=== PATIENT | male | born 1950 | race Caucasian/White ===

== ENCOUNTER 2019-04-10 13:35 | Inpatient (IN) | payer MEDICAID ==
[~2019-04-10] VITALS: Ht 175.3 cm; Wt 86.6 kg
--- NOTE | ~2019-04-10 | CN ---
PATIENT NAME:MIRNA ESPINOZA MEDICAL RECORD: [id number] : 48 LOCATION:D. D.2133 ADMIT DATE: 04/10/19 ACCOUNT: [id number] CONSULTING PHYSICIAN: ALDEN SALMON MD REFERRING PHYSICIAN: MINNIE ROJAS MD DATE OF CONSULTATION: 04/11/2019 REASON FOR CONSULTATION: Large right-sided pleural effusion, ascites. HISTORY OF PRESENT ILLNESS: Mr. Espinoza is a 68-year-old gentleman who is incarcerated, was admitted with worsening shortness of breath and chest radiograph showed large right-sided pleural effusion. His pro-BNP was 35,000. The patient has generalized anasarca. He denies any fever or chill. No night sweats. He has a cough without much sputum production. He denies any chest pain. REVIEW OF SYSTEMS: As in history of present illness. PAST MEDICAL HISTORY: 1. COPD. 2. Gastroesophageal reflux disease. 3. Diabetes mellitus type 2. 4. Arthritis. 5. Chronic backache. ALLERGIES: There are no known drug allergies. MEDICATIONS: On AppSlingr is reviewed. PERSONAL AND SOCIAL HISTORY: The patient is a nondrinker. He is an ex-smoker. FAMILY HISTORY: Noncontributory. PHYSICAL EXAMINATION: GENERAL: Now, the patient is lying comfortably in bed. He is not in acute distress. VITAL SIGNS: The blood pressure is 102/64, pulse is 96, respiration 20, temperature 96.8, SpO2 is 96% on 3.5 liter nasal cannula. HEENT: Conjunctivae are pink. Sclerae nonicteric. NECK: Supple. Very elevated JVD. CHEST: There is absent breath sounds on the right side. There is dullness on percussion. HEART: Rhythm regular, normal sound, no murmur. ABDOMEN: Distended, it is tense. Dullness on percussion. RECTAL: Deferred. EXTREMITIES: No cyanosis, no clubbing. There are 2+ pedal edema. CENTRAL NERVOUS SYSTEM: The patient is awake and alert. There is no obvious cranial nerve abnormality. The gait was not tested. LABORATORY DATA: CBC: The WBC is 12.7, hemoglobin 10.7, hematocrit 34.1, the platelet count 398. Chemistry: Sodium 141, potassium 4.1, BUN is 22, creatinine 0.9. The liver enzymes: AST is 11 and ALT is 14. The proBNP is 35,271. ABG: The pH is 7.37, pCO2 is 48.6, the pO2 is 67, and bicarb is 28.4. CONSULT REPORT [id number] MIRNA ESPINOZA IMPRESSION: 1. Iegio-mg-hjuekkd hypoxic hypercapnic respiratory failure. 2. Large right pleural effusion with a generalized anasarca, most likely secondary to congestive heart failure. This likely cirrhosis of liver with normal LFTs. 3. Atelectasis, possible pneumonia in the right lower lobe. 4. Leukocytosis. 5. Congestive heart failure, most likely systolic dysfunction with a proBNP 35,000. 6. Chronic obstructive pulmonary disease. 7. Chronic backache. 8. Ex-smoker. RECOMMENDATION: 1. Continue Lasix. 2. Continue empiric antibiotic. 3. Albuterol/ipratropium nebulizer. 4. I will proceed with thoracentesis on the right side. CT scan of the chest, post-thoracentesis. 5. Continue supplemental oxygen. Dr. Rojas, thank you for involving me in the care of Mr. Espinoza. TRANSINT:[id number] Voice Confirmation ID: [id number] DOCUMENT ID: [id number] ALDEN SALMON MD CC: [id number] DICTATION DATE: 04/11/19 1455 SUPERVISOR NATURAL GAS PLANT: 04/11/19 1757 ADM IN [facility] [address] [place] [address]
--- NOTE | 2019-04-10 14:01 | NUR ---
PATIENT IN PER EMS FROM THE NURSING HOME, HAS TWO GUARDS AT BEDSIDE, C/O SOB, STATES HE HAS A PARASENTHESIS SCHEDULED NEXT WEEK. HAS WHEEZES TO ALL LUNG DIAL, STATES HE IS A BEDBOUND PATIENT. ANSWERS QUESTION APPROPRIATELY AT THIS TIME, HAS A NONPRODUCTIVE COUGH, NO EDEMA.
[2019-04-10 14:38] LABS: BASOPHILS 0.1 % (0-2); EOSINOPHILS 0.6 % (0-7); HEMATOCRIT 34.1 % (42.0-54.0); HEMOGLOBIN 10.7 g/dL (13.5-17.5); IMMATURE GRANULOCYTES 0.3 % (0-5); LYMPHOCYTES 12.9 % (15-50); MCH 25.1 pg (26.0-34.0); MCHC 31.4 g/dL (31.0-37.0); MEAN PLATELET VOLUME 8.6 fL (7.4-10.4); MONOCYTES 7.7 % (2-11); NEUTROPHILS 78.4 % (40-80); PLATELET COUNT 398 10x3/uL (130-400); RBC 4.26 10x6/uL (4.20-6.10); RDW 18.8 % (11.5-14.5); WBC 12.7 10x3/uL (4.8-10.8)
[2019-04-10 14:48] LABS: CALC OSMOLALITY 284 mosm/kg (275-300); CALCIUM 9.1 mg/dL (8.5-10.1); CARBON DIOXIDE 31.4 mmol/L (21.0-32.0); CHLORIDE - SERUM 102 mmol/L (98-107); CREATININE - SERUM 0.9 mg/dL (0.6-1.3); GLUCOSE 118 mg/dL (74-106); POTASSIUM - SERUM 4.1 mmol/L (3.5-5.1); SODIUM 141 mmol/L (136-145); UREA NITROGEN 22 mg/dL (7-18); eGFR NON AFRICAN AMERICAN 89 mL/min (90-120)
[2019-04-10 14:59] VITALS: BP 125/82
[2019-04-10 15:01] LABS: APTT 29.2 SECONDS (22.8-39.4); INR 1.09 (0.85-1.17)
[2019-04-10 15:05] LABS: ALBUMIN 2.4 g/dL (3.4-5.0); ALKALINE PHOSPHATASE 86 U/L (46-116); ALT (SGPT) 14 U/L (10-68); BILIRUBIN - TOTAL 0.34 mg/dL (0.2-1.3); CKMB 2.3 U/L (0.0-3.6); CREATINE KINASE 25 UL (21-232); PROTEIN - SERUM 6.2 g/dL (6.4-8.2); TROPONIN-I 0.055 ng/mL (0.000-0.060)
[2019-04-10 15:24] LABS: PRO BNP 35271 pg/mL (0-125)
[2019-04-10 15:53] VITALS: BP 114/73
--- NOTE | 2019-04-10 16:52 | MORECARE ---
CASE MANAGEMENT DISCHARGE SUMMARY PATIENT: MIRNA ESPINOZA UNIT: [id number] ADM DATE: 04/10/19 AGE: 68 : 49 SEX: M ROOM/BED: D.2133 AUTHOR: BRI LAMAS PHYSICIAN: REFERRING PHYSICIAN: MINNIE SCHULTZ MD DATE OF SERVICE: 04/10/19 Discharge Plan Patient Name: MIRNA ESPINOZA [facility] : 1950 Planned Disposition: Anticipated Discharge Date: Discharge Date: Expected LOS: Initial Reviewer: [email or web address] Initial Review Date: 04/10/2019 Generated: 04/10/19 5:51 pm Patient Name: MIRNA ESPINOZA Page [phone] at 1652 All edits/amendments must be made on the electronic document DICTATION DATE: 04/10/191650 APPLIANCE INSTALLER: XENIA 04/10/191650 RPT#: [id number] DC DATE: STATUS: ADM IN [facility] [address] [place] [address] END OF REPORT
[2019-04-10 16:57] VITALS: BP 116/84
--- NOTE | 2019-04-10 17:47 | NUR ---
PT ARRIVED TO FLOOR VIA STRETCHER. TOOK X3 STAFF TO TRANSFER PT TO BED. PT IS ALERT AND ORINTED BUT A POOR HISTORIAN. O2 AT 2L VIA NC. RIGHT AC IV INFUSING NS AND ABX. IV WILL BE SL AFTER IV IS DONE INFUSING ABX. PT STATES HE HAS NO FURTHER NEEDS AT THIS TIME. PT PLACED ON TELEMETRY. GUARD AT BEDSIDE. BED LOW. CL IN REACH. WILL CONTINUE TO MONITOR.
[2019-04-10 18:11] LABS: % SATURATION 7 % (15-55); IRON 18 ug/dl (35-150); TOTAL IRON BIND CAPACITY 227 ug/dl (260-445); UNSAT IRON BIND CAPACITY 209 ug/dl (150-375)
[2019-04-10 18:13] VITALS: BP 109/72; BMI 35.5
[2019-04-10] MEDS ORDERED: ALDACTONE25 MG PO (18:23)
[2019-04-10] MEDS ORDERED: ZOSYN 3.3753.375 G1 IV (18:23)
[2019-04-10] MEDS ORDERED: PROVENTIL/2.5 MG/3 M INH (18:24)
[2019-04-10] MEDS ORDERED: LASIX40 MG PO (18:25)
[2019-04-10] MEDS ORDERED: ZYLOPRIM100 MG PO (18:26)
[2019-04-10] MEDS ORDERED: GLUCOPHAGE500 MG PO (18:26)
[2019-04-10] MEDS ORDERED: COREG6.25 MG PO (18:26)
[2019-04-10] MEDS ORDERED: ZOCOR20 MG PO (18:28)
[2019-04-10] MEDS ORDERED: K-TAB10 MEQ PO (18:31)
[2019-04-10] MEDS ORDERED: OMEPRAZOLE40 MG PO (18:31)
[2019-04-10] MEDS ORDERED: XOPENEX HFA15 GM INH (18:32)
[2019-04-10] MEDS ORDERED: FLOMAX0.4 MG PO (18:33)
[2019-04-10] MEDS ORDERED: LOW DOSE ASPIRI81 M1 PO (18:33)
[2019-04-10 18:38] LABS: MAGNESIUM - SERUM 1.4 mg/dL (1.8-2.4)
[2019-04-10 20:00] VITALS: BP 101/864
[2019-04-10 20:33] LABS: CKMB 2.3 U/L (0.0-3.6); CREATINE KINASE 25 UL (21-232); TROPONIN-I 0.052 ng/mL (0.000-0.060)
--- NOTE | 2019-04-10 23:48 | NUR ---
INITIAL ROUNDS COMPLETED AT 1920 HRS. PT DNEIED ANY DISCOMFORT. EKG COMPLETED AT 2014 HRS. ASSESSMENT COMPLETED AT 2039 HRS. VSS. BIPAP IN USE. ALERT AND ORIENTED. LUNGS DIMINISHED IN BASES BILAT. IV TO RAC SL. ABD DISTENDED WITH HYPOACTIVE BS NOTED. 2+ EDEMA NOTED TO FEET. BRUISES NOTED TO BILAT ARMS. BUTTOCKS RED, PT INCONTINENT OF URINE. HIBICLENS BATH DONE, BED LINENS CHANGED. PT TOLERATED ACTIVITY WELL. PM FSBS 133. NO COVERAGE NEEDED. PT CURRENTLY RESTING WTIH EYES CLOSED. RESP EVEN AND REGULAR. SR UP X2, CALL LIGHT WITHIN REACH. SRPER CM HR 88.
[2019-04-11] VITALS: BP 118/75
[2019-04-11 02:33] LABS: BASOPHILS 0.1 % (0-2); EOSINOPHILS 1.6 % (0-7); HEMATOCRIT 32.9 % (42.0-54.0); HEMOGLOBIN 10.2 g/dL (13.5-17.5); IMMATURE GRANULOCYTES 0.4 % (0-5); MCH 24.7 pg (26.0-34.0); MCV 79.7 fL (80.0-100.0); MEAN PLATELET VOLUME 8.5 fL (7.4-10.4); NEUTROPHILS 74.9 % (40-80); PLATELET COUNT 382 10x3/uL (130-400); RBC 4.13 10x6/uL (4.20-6.10); RDW 18.7 % (11.5-14.5); WBC 10.9 10x3/uL (4.8-10.8)
--- NOTE | 2019-04-11 02:34 | NUR ---
EKG DONE. UA OBTAINED.
[2019-04-11 02:51] LABS: APPEARANCE CLEAR (CLEAR); BILIRUBIN NEGATIVE (NEGATIVE); COLOR YELLOW (YELLOW); GLUCOSE NEGATIVE (NEGATIVE); KETONE NEGATIVE (NEGATIVE); NITRITE NEGATIVE (NEGATIVE); PROTEIN NEGATIVE (NEGATIVE); SPECIFIC GRAVITY 1.005 (1.005-1.020); UROBILINOGEN NORMAL (NORMAL)
[2019-04-11 02:58] LABS: ALBUMIN 2.2 g/dL (3.4-5.0); ALKALINE PHOSPHATASE 70 U/L (46-116); ALT (SGPT) 14 U/L (10-68); BILIRUBIN - TOTAL 0.33 mg/dL (0.2-1.3); CALC OSMOLALITY 282 mosm/kg (275-300); CALCIUM 8.7 mg/dL (8.5-10.1); CARBON DIOXIDE 32.8 mmol/L (21.0-32.0); CHLORIDE - SERUM 102 mmol/L (98-107); CKMB 1.7 U/L (0.0-3.6); CREATINE KINASE 24 UL (21-232); CREATININE - SERUM 0.9 mg/dL (0.6-1.3); GLUCOSE 109 mg/dL (74-106); POTASSIUM - SERUM 3.5 mmol/L (3.5-5.1); PROTEIN - SERUM 6.1 g/dL (6.4-8.2); SODIUM 140 mmol/L (136-145); TROPONIN-I 0.053 ng/mL (0.000-0.060); UREA NITROGEN 22 mg/dL (7-18); eGFR NON AFRICAN AMERICAN 89 mL/min (90-120)
[2019-04-11 04:00] VITALS: BP 108/71
--- NOTE | 2019-04-11 04:59 | NUR ---
TYLENOL 650 MG PO GIVE FOR C/O GENERALIZED DISCOMFORT. KDUR 40 MEQ PO GIVEN FOR K+ OF 3.5 PER ELECTROLYTE PROTOCOL. WILL CONTINUE TO MONITOR.
--- NOTE | 2019-04-11 05:53 | NUR ---
VSS THROUGHOUT NIGHT. SR PER CM. PT STATED TYLENOL HELPED ALLEVIATE PAIN. NEEDS MET; WILL CONTINUE TO MONITOR.
--- NOTE | 2019-04-11 07:18 | NUR ---
PT AWAKE AND ORIENTED, LAYING IN BED. GUARD AT BEDSIDE. NO COMPLAINTS/CONCERNS, ALL QUESTIONS ANSWERED TO THE BEST OF MY ABILITY. CL IN REACH, SRX2.
[2019-04-11 08:33] VITALS: Ht 175.3 cm; Wt 86.6 kg
[2019-04-11 09:14] LABS: CKMB 1.6 U/L (0.0-3.6); CREATINE KINASE 21 UL (21-232); TROPONIN-I 0.059 ng/mL (0.000-0.060)
--- NOTE | 2019-04-11 09:19 | NUR ---
PT AWAKE ALERT AND ORIENTED, TOOK PILLS WITHOUT DIFFICULTY OR ASSITANCE. NO COMPLAINTS OR CONCERNS, ORDERED GUEST TRAY FOR GUARD. ALL QUESTIONS ANSWERED TO THE BEST OF MY ABILITY. CL IN REACH, SRX.2
--- NOTE | 2019-04-11 10:00 | NUR ---
PT REFUSES PHYSCIAL THERAPY.
[2019-04-11 10:12] VITALS: BP 102/64
--- NOTE | 2019-04-11 11:30 | NUR ---
PT AWAKE AND ORIENTED, STATES HE'S HAVING SOME CONSTANT LEAKING OF URINE AND WOULD LIKE TO HAVE A CATHETER. INFROMED PT OF THE RISKS OF HAVING A BUSCH CATH PLACED (UTI, ECT). HE STATES HE WILL SPEAK TO THE DR ABOUT IT WHEN HE ROUNDS. GUARD AT BEDSIDE. CL INR REACH, SRX2.
[2019-04-11 12:00] VITALS: BP 115/81
--- NOTE | 2019-04-11 15:06 | NUR ---
PT RESTING PEACEFULLY. EYES CLOSED, BREATHS EVEN/REGULAR AND UNLABORED. NO SIGNS/SYMTPOMS OF ACUTE DISTRESS NOTED AT THIS TIME. DID NOT ORDER A CATHETER. GUARD AT BEDSIDE. CL IN REACH, SRX2.
--- NOTE | 2019-04-11 18:02 | NUR ---
I CONCUR WITH THE REPAIR MECHANIC ASSESSMENT OF THIS PATIENT.
[2019-04-11 18:09] VITALS: BP 105/67
--- NOTE | 2019-04-11 18:22 | NUR ---
PT IS ALERT AND ORIENTED, C/O NEEDING BREATH TX. INFROMED RESPIRATORY. GUARD AT BEDSIDE. ALL QUESTIONS ANSWERED TO THE BEST OF MY ABILITY. I/V WORKING WNL. CL IN REACH, SRX2.
--- NOTE | 2019-04-11 19:58 | NUR ---
RECEIVED UP IN BED WITH HOB ELEVATED. O2@ 3.5 LITERS PER N/C. IV TO RIGHT AC COMPLETED IRON AND FLUSHED PER PROTOCOL. ALERT AND ORIETNED. REMAINS BEDFAST. GAURD AT BEDSIDE. TELEMETRY IN PLACE. BIPAP AT BEDSIDE. DENIES ANY NEEDS AT THIS TIME.
[2019-04-11 20:00] VITALS: BP 133/69
--- NOTE | 2019-04-11 20:01 | NUR ---
TWO LARGE NODULE ON BACK. ONEIS ON THE LEFT SIDE ON AND NEAR SCAPULA. IT IS MOVABLE AND FEELS POSSIBLY FLUID FILLED. OTHER NODULE IS UPPER MID BACK CLOSE TO NECK. SMALLER IN SIZE AND MOVEABLE. MUCH FIRMER. WILL REPORT TO ONCOMMING TO INFORM MD.
[2019-04-12] VITALS (14 sets, daily range): BP systolic 102–118; BP diastolic 62–77
[2019-04-12 05:49] LABS: BASOPHILS 0.2 % (0-2); EOSINOPHILS 1.9 % (0-7); HEMATOCRIT 35.7 % (42.0-54.0); HEMOGLOBIN 11.1 g/dL (13.5-17.5); IMMATURE GRANULOCYTES 0.2 % (0-5); LYMPHOCYTES 16.6 % (15-50); MCH 24.8 pg (26.0-34.0); MCHC 31.1 g/dL (31.0-37.0); MCV 79.9 fL (80.0-100.0); MEAN PLATELET VOLUME 8.8 fL (7.4-10.4); MONOCYTES 9.1 % (2-11); PLATELET COUNT 352 10x3/uL (130-400); RBC 4.47 10x6/uL (4.20-6.10); RDW 18.6 % (11.5-14.5); WBC 9.4 10x3/uL (4.8-10.8)
[2019-04-12 06:18] LABS: ALBUMIN 2.3 g/dL (3.4-5.0); ALKALINE PHOSPHATASE 79 U/L (46-116); ALT (SGPT) 15 U/L (10-68); BILIRUBIN - TOTAL 0.32 mg/dL (0.2-1.3); CALC OSMOLALITY 287 mosm/kg (275-300); CALCIUM 8.7 mg/dL (8.5-10.1); CARBON DIOXIDE 34.8 mmol/L (21.0-32.0); CHLORIDE - SERUM 102 mmol/L (98-107); GLUCOSE 121 mg/dL (74-106); POTASSIUM - SERUM 3.6 mmol/L (3.5-5.1); PROTEIN - SERUM 6.5 g/dL (6.4-8.2); SODIUM 142 mmol/L (136-145); UREA NITROGEN 23 mg/dL (7-18); eGFR NON AFRICAN AMERICAN 79 mL/min (90-120)
[2019-04-12 06:20] LABS: PRO BNP 43655 pg/mL (0-125)
--- NOTE | 2019-04-12 07:00 | NUR ---
RECEIVED REPORT. ASSUMED CARE OF PATIENT. PATIENT RESTING IN BED WITH EYES CLOSED. RESP EVEN AND UNLABORED. PATIENT WITH GAURD AT BEDSIDE. PATIENT NPO FOR PROCEDURE THIS AM. CALL LIGHT WITHIN REACH. NO DISTRESS.
--- NOTE | 2019-04-12 08:36 | NUR ---
PATIENT LEFT UNIT VIA BED AT THIS TIME FOR THORACENTESIS VIA . NO DISTRESS UPON LEAVING UNIT.
--- NOTE | 2019-04-12 09:30 | NUR ---
PATIENT RETURNED TO UNIT VIA BED FROM THORACENTESIS OF RIGHT LUNG. PATIENT ALERT/ORIENTED. NO DISTRESS. DRESSING TO RIGHT BACK, CLEAN DRY AND INTACT. DENIES NEEDS AT THIS TIME. AM MEAL TRAY ORDERED. VS Q 15 MINUTES. NO DISTRESS. GAURD AT BEDSIDE.
[2019-04-12 10:07] LABS: PROTEIN - BODY FLUID 3.1 G/DL
[2019-04-12 10:46] LABS: MACROPHAGES BF 60 %; MESOTHELIALS BF 1 %; NEUT - BF 16 %
--- NOTE | 2019-04-12 11:37 | NUR ---
FSBS 137. NO INSULIN COVERAGE PER SLIDING SCALE.
--- NOTE | 2019-04-12 15:44 | NUR ---
MEDICATED FOR BACK PAIN WITH TYLENOL. NO DISTRESS.
--- NOTE | 2019-04-12 17:01 | NUR ---
FSBS 163. 2 UNITS HUMULIN INSULIN ADMINISTERED PER SLIDING SCALE
--- NOTE | 2019-04-12 20:54 | NUR ---
INITIAL ROUNDS COMPLETED AT 1910 HRS. PT INCONTINENT OF URINE. INCONTINENT CARE DONE. ASSESSMENT COMPELTED AT 1935 HRS. SR PER CM HR 83. O2 3.5LNC. ALERT AND ORIENTED TO PERSON, PLACE AND TIME. HWEELER. LUNGS DIMINISHED IN BASES BILAT. IV TO RAC WITH IVAB INFUSING. ABD DISTENDED WITH ACTIVE BS NOTED. 2+ PITTING EDEMA NOTED. DRESSING TO R LATERAL BACK CLEAN,DRY AND INTACT. BUTTOCKS RED. BRUISE NOTED TO ABD. NUMEROUS RED ALREAS NOTED TO BILAT LOWER LEGS. PM FSBS 135. NO COVERAGE NEEDED. SR UP X2, CALL LIGHT WITHIN REACH.
--- NOTE | 2019-04-12 21:52 | NUR ---
TYLENOL 650MG PO GIVEN FOR C/O INCISIONAL PAIN WITH PM MEDS. IV SL. CALL LIGHT WITHIN REACH.
[2019-04-13] VITALS: BP 90/54
--- NOTE | 2019-04-13 00:39 | NUR ---
PT RESTING WITH EYES CLOSED. RESP EVEN AND REGULAR. SR UP X2, CALL LIGHT WITHIN REACH.
--- NOTE | 2019-04-13 02:23 | NUR ---
PT INCONTINENT OF URINE. INCONTINENT CARE DONE. SR UP X2, CALL LIGHT WITHIN REACH.
[2019-04-13 04:28] VITALS: BP 81/54
--- NOTE | 2019-04-13 05:01 | NUR ---
PT RESTING WITH EYES CLOSED. RESP EVEN AND REGULAR. SR UP X2, CALL LIGHT WITHIN REACH.
[2019-04-13 05:27] LABS: BASOPHILS 0.1 % (0-2); EOSINOPHILS 2.2 % (0-7); HEMOGLOBIN 10.5 g/dL (13.5-17.5); IMMATURE GRANULOCYTES 0.3 % (0-5); LYMPHOCYTES 16.3 % (15-50); MCH 24.6 pg (26.0-34.0); MCHC 30.9 g/dL (31.0-37.0); MCV 79.8 fL (80.0-100.0); MEAN PLATELET VOLUME 9.2 fL (7.4-10.4); MONOCYTES 11.2 % (2-11); NEUTROPHILS 69.9 % (40-80); PLATELET COUNT 352 10x3/uL (130-400); RBC 4.26 10x6/uL (4.20-6.10); RDW 18.7 % (11.5-14.5); WBC 9.6 10x3/uL (4.8-10.8)
--- NOTE | 2019-04-13 06:01 | NUR ---
VSS THROUGHOUT NIGHT. SR PER CM. PT STATED TYLENOL HELPED INCISIONAL PAIN. NEEDS MET; WILL CONTINUE TO MONITOR.
[2019-04-13 06:02] LABS: ALKALINE PHOSPHATASE 75 U/L (46-116); ALT (SGPT) 14 U/L (10-68); BILIRUBIN - TOTAL 0.28 mg/dL (0.2-1.3); CALC OSMOLALITY 283 mosm/kg (275-300); CALCIUM 8.3 mg/dL (8.5-10.1); CARBON DIOXIDE 38.4 mmol/L (21.0-32.0); CHLORIDE - SERUM 99 mmol/L (98-107); CREATININE - SERUM 0.9 mg/dL (0.6-1.3); GLUCOSE 127 mg/dL (74-106); POTASSIUM - SERUM 3.5 mmol/L (3.5-5.1); PROTEIN - SERUM 5.5 g/dL (6.4-8.2); SODIUM 140 mmol/L (136-145); UREA NITROGEN 21 mg/dL (7-18); eGFR NON AFRICAN AMERICAN 89 mL/min (90-120)
[2019-04-13 06:51] LABS: PRO BNP 36744 pg/mL (0-125)
[2019-04-13 10:09] VITALS: BP 113/68
--- NOTE | 2019-04-13 11:11 | NUR ---
I have reviewed this patient and I concur with the Shift Assessment completed by the Licensed Practical Nurse today this shift.
[2019-04-13 13:01] VITALS: BP 113/70
--- NOTE | 2019-04-13 13:55 | NUR ---
PT HAD LARGE BM IN BEDPAN. PT'S BED DIRTY. BED LINENS CHANGED.
--- NOTE | 2019-04-13 13:56 | NUR ---
UNABLE TO COLLECT STOOL SAMPLE D/T CONTAMINATED PER URINE.
--- NOTE | 2019-04-13 16:00 | NUR ---
SPOKE WITH QUIN RODRIGUEZ ABOUT DOBUTAMINE DRIP THAT WAS ORDERED BY DR. SHARP. SHE STATES THE ECHO WILL HAVE TO GET READ FIRST AND IF EF IS LESS THAN 30 START DOBUTAMINE DRIP IT IS PUT IN DR. SHARP'S NOTE. BUT THE ECHO PROBABLY WON'T BE READ UNTIL TOMORROW. SHE ALSO STATES SHE WILL PUT IN A NURSE MESSAGE THAT IF PT'S HR GETS TO BE OVER 100 TO GIVE COREG AND TO PASS THIS ON TO FUNCTIONAL SKILLS TUTOR. I VERBALIZED UNDERSTANDING.
--- NOTE | 2019-04-13 16:36 | NUR ---
RIGHT AC 20G IV OUT. INSERTED A 20G IN LEFT FA ON SECOND ATTEMPT.
[2019-04-13 16:55] VITALS: BP 97/60
--- NOTE | 2019-04-13 19:00 | NUR ---
EVENING ROUNDS COMPLETE. PT LAYING IN BED, GAURD AT BEDSIDE. NO SIGNS OF DISTRESS. AAOX4. PT DENIES ANY PAIN OR NEEDS AT THIS TIME. CL IN REACH, BED IN LOWEST POSITION.
[2019-04-13 20:30] VITALS: BP 120/69
[2019-04-14 00:30] VITALS: BP 102/68
[2019-04-14 04:30] VITALS: BP 105/58
[2019-04-14 06:25] LABS: BASOPHILS 0.1 % (0-2); EOSINOPHILS 3.2 % (0-7); HEMATOCRIT 34.1 % (42.0-54.0); HEMOGLOBIN 10.5 g/dL (13.5-17.5); IMMATURE GRANULOCYTES 0.3 % (0-5); LYMPHOCYTES 20.9 % (15-50); MCH 24.6 pg (26.0-34.0); MCHC 30.8 g/dL (31.0-37.0); MEAN PLATELET VOLUME 9.1 fL (7.4-10.4); MONOCYTES 8.9 % (2-11); NEUTROPHILS 66.6 % (40-80); PLATELET COUNT 344 10x3/uL (130-400); RBC 4.26 10x6/uL (4.20-6.10); RDW 18.8 % (11.5-14.5); WBC 9.2 10x3/uL (4.8-10.8)
[2019-04-14 07:04] LABS: ALKALINE PHOSPHATASE 68 U/L (46-116); ALT (SGPT) 15 U/L (10-68); BILIRUBIN - TOTAL 0.35 mg/dL (0.2-1.3); CALC OSMOLALITY 281 mosm/kg (275-300); CALCIUM 8.1 mg/dL (8.5-10.1); CARBON DIOXIDE 39.4 mmol/L (21.0-32.0); CHLORIDE - SERUM 98 mmol/L (98-107); CREATININE - SERUM 0.9 mg/dL (0.6-1.3); GLUCOSE 108 mg/dL (74-106); PROTEIN - SERUM 5.9 g/dL (6.4-8.2); SODIUM 139 mmol/L (136-145); UREA NITROGEN 22 mg/dL (7-18); eGFR NON AFRICAN AMERICAN 89 mL/min (90-120)
[2019-04-14 07:07] LABS: POTASSIUM - SERUM 3.6 mmol/L (3.5-5.1)
[2019-04-14 09:58] VITALS: BP 127/78
--- NOTE | 2019-04-14 10:31 | NUR ---
SPOKE WITH LUPE RODRIGUEZ THAT PT IS INCONTINENT AFTER GETTING LASIX AND WE CAN NOT ACCURATELY MEASURE PT'S I AND O. SHE STATES TO PLACE A BUSCH CATH. I VERBALIZED UNDERSTANDING.
--- NOTE | 2019-04-14 11:04 | NUR ---
16 DIVEHI BUSCH CATHETER PLACED WITH NO RESISTANCE. PT TOLERATED WELL.
--- NOTE | 2019-04-14 13:00 | NUR ---
PT ASSISTED ON BSC AND BACK IN BED BY UTILITY PORTER. PT HAD A LARGE BM.
[2019-04-14 14:40] VITALS: BP 109/76
--- NOTE | 2019-04-14 15:20 | NUR ---
DR. BLOOMSKED WHY DOBUTAMINE DRIP HAS NO BEEN STARTED. I STATED TO HIM I AM WAITING FOR ECHO RESULTS TO SEE IF PT'S EF IS LESS THAN 30% TO START IT PER HIS NOTE YESTERDAY. HE YELLS AT ME AND STATES "MY NOTE DOES NOT SAY THAT!! START THE DRIP RIGHT NOW!" I VERBALIZED UNDERSTANDING. IN DR. HODGSON NOT YESTERDAY 04/13/19 IT SAYS "IF EF < 30%, WILL START DOBUTAMINE FOR ENHANCED DIURESIS." STARTED DOBUTAMINE AT 24.5ML/HR IN LEFT FA 20G IV.
--- NOTE | 2019-04-14 15:35 | NUR ---
Nutrition Follow-up: Eating well. Denies N/V/C/D. Diet: Diabetic PO intake: 100% Wt: 180# (04/14) Last BM: 04/13 Labs noted: Glu 108, Ca 8.1, Alb 2.0 Meds noted: Lasix, Humulin, Protonix -Continue current diet as tolerated. -Monitor wt; noted daily wts ordered. -RD following.
--- NOTE | 2019-04-14 15:35 | NUR ---
SPOKE WITH QUIN PENN ABOUT DOBUTAMINE DRIP AND THE ECHO JUST RESULTED. SHE STATES SHE WILL TALK TO [facility] ON WHETHER HE WANTS TO DC THE DOBUTAMINE OR NOT AND TO IRA SALVADOR ON INSERTING ANOTHER IV ON PATIENT. I VERBALIZED UNDERSTANDING.
--- NOTE | 2019-04-14 17:07 | NUR ---
DC'D DOBUTAMINE PER CARDIOLOGY ORDERS.
--- NOTE | 2019-04-14 17:10 | NUR ---
OT NOTE: PT COMPLETED EOB SITTING BALANCE WITH SBA. PT COMPLETED BED MOB TASKS WITH SBA. PT COMPLETED BUE AROM EX AT EOB. 103-134 THANK YOU, REG IBARRA
[2019-04-14 17:32] VITALS: BP 116/67
--- NOTE | 2019-04-14 17:48 | NUR ---
I have reviewed this patient and I concur with the Shift Assessment completed by the Licensed Practical Nurse today this shift.
[2019-04-14 18:08] LABS: ACID FAST SMEAR Negative (()); AFB SPECIMEN PROCESSING Not Indicated (())
[2019-04-14 20:45] VITALS: BP 94/65
[2019-04-15 01:05] VITALS: BP 97/61
[2019-04-15 04:45] VITALS: BP 90/64
[2019-04-15 06:18] LABS: BASOPHILS 0.1 % (0-2); HEMATOCRIT 33.6 % (42.0-54.0); HEMOGLOBIN 10.4 g/dL (13.5-17.5); IMMATURE GRANULOCYTES 0.3 % (0-5); MCH 24.9 pg (26.0-34.0); MCV 80.4 fL (80.0-100.0); MEAN PLATELET VOLUME 9.4 fL (7.4-10.4); MONOCYTES 9.3 % (2-11); NEUTROPHILS 68.3 % (40-80); PLATELET COUNT 341 10x3/uL (130-400); RBC 4.18 10x6/uL (4.20-6.10); RDW 18.9 % (11.5-14.5); WBC 9.5 10x3/uL (4.8-10.8)
[2019-04-15 07:05] LABS: ALKALINE PHOSPHATASE 72 U/L (46-116); ALT (SGPT) 15 U/L (10-68); BILIRUBIN - TOTAL 0.35 mg/dL (0.2-1.3); CALC OSMOLALITY 281 mosm/kg (275-300); CALCIUM 8.1 mg/dL (8.5-10.1); CARBON DIOXIDE 39.4 mmol/L (21.0-32.0); CHLORIDE - SERUM 97 mmol/L (98-107); CREATININE - SERUM 0.9 mg/dL (0.6-1.3); GLUCOSE 109 mg/dL (74-106); POTASSIUM - SERUM 3.4 mmol/L (3.5-5.1); PROTEIN - SERUM 5.9 g/dL (6.4-8.2); SODIUM 139 mmol/L (136-145); UREA NITROGEN 21 mg/dL (7-18); eGFR NON AFRICAN AMERICAN 89 mL/min (90-120)
--- NOTE | 2019-04-15 09:42 | NUR ---
REPORTED TO ME BY CYBER ENGINEER PT'S BP 90/55. WILL HOLD LASIX AND COREG.
[2019-04-15 10:21] VITALS: BP 97/55
--- NOTE | 2019-04-15 12:13 | NUR ---
LUPE MEDRANO AND STATES SHE WILL NOT ORDER PAIN MEDICATION FOR DC DR. MAY CAN ORDER THAT AND PT CAN DC IF IT IS OK WITH DR. MAY. I VERBALIZED UNDERSTANDING. DR. MAY PAGED.
[2019-04-15 14:09] LABS: FUNGUS STAIN Final report (())
[2019-04-15 14:42] LABS: APTT 30.2 SECONDS (22.8-39.4); INR 1.11 (0.85-1.17); PROTIME 14.2 SECONDS (11.6-15.0)
--- NOTE | 2019-04-15 14:50 | NUR ---
OT NOTE: REFUSED TMT TODAY. SUNNY PORTILLO, OTR/L
[2019-04-15 14:52] VITALS: BP 118/51
--- NOTE | 2019-04-15 15:02 | NUR ---
IR CALLED AND STATED THEY CAN NOT DO PARACENTESIS TODAY THEY ARE TOO BACKED UP AND THEY ARE ABOUT TO DO AN ICU CASE NOW. SHE STATES THEY WILL DO PT TOMORROW AND PT WILL NEED TO BE NPO AFTER MIDNIGHT. I VERBALIZED UNDERSTANDING.
--- NOTE | 2019-04-15 15:38 | NUR ---
I have reviewed this patient and I concur with the Shift Assessment completed by the Licensed Practical Nurse today this shift.
--- NOTE | 2019-04-15 17:29 | NUR ---
LEFT FA 20G IV LEAKING. DC'D WITH CTAH INTACT. ROGHT WRIST 20G IV INSERTED X1 ATTEMPT.
--- NOTE | 2019-04-15 17:45 | NUR ---
CONSNETS FOR PARACENTESIS TOMORROW SIGNED BY PT. GUARD STATES PT SIGNS FOR HIMSELF.
[2019-04-15 18:22] VITALS: BP 106/69
--- NOTE | 2019-04-15 19:13 | NUR ---
EVENING ROUNDS COMPLETE. PT LAYING IN BED, NO SIGNS OF DISTRESS. GAURD AT BEDSIDE. PT DENIES ANY PAIN OR NEEDS AT THIS TIME. CL IN REACH, BED IN LOWEST POSITION.
[2019-04-15 23:46] VITALS: BP 91/58
[2019-04-16] VITALS (9 sets, daily range): BP systolic 97–137; BP diastolic 59–78
[2019-04-16 05:51] LABS: BASOPHILS 0.1 % (0-2); EOSINOPHILS 2.3 % (0-7); HEMATOCRIT 34.1 % (42.0-54.0); HEMOGLOBIN 10.4 g/dL (13.5-17.5); IMMATURE GRANULOCYTES 0.3 % (0-5); LYMPHOCYTES 16.7 % (15-50); MCH 24.9 pg (26.0-34.0); MCHC 30.5 g/dL (31.0-37.0); MCV 81.8 fL (80.0-100.0); MEAN PLATELET VOLUME 9.3 fL (7.4-10.4); MONOCYTES 10.4 % (2-11); NEUTROPHILS 70.2 % (40-80); PLATELET COUNT 327 10x3/uL (130-400); RBC 4.17 10x6/uL (4.20-6.10); RDW 19.2 % (11.5-14.5); WBC 10.7 10x3/uL (4.8-10.8)
[2019-04-16 05:58] LABS: APTT 33.5 SECONDS (22.8-39.4); INR 1.12 (0.85-1.17); PROTIME 14.4 SECONDS (11.6-15.0)
[2019-04-16 06:05] LABS: ALBUMIN 2.1 g/dL (3.4-5.0); ALKALINE PHOSPHATASE 80 U/L (46-116); BILIRUBIN - TOTAL 0.36 mg/dL (0.2-1.3); CALC OSMOLALITY 279 mosm/kg (275-300); CALCIUM 8.1 mg/dL (8.5-10.1); CHLORIDE - SERUM 97 mmol/L (98-107); GLUCOSE 115 mg/dL (74-106); POTASSIUM - SERUM 3.7 mmol/L (3.5-5.1); PROTEIN - SERUM 6.1 g/dL (6.4-8.2); SODIUM 138 mmol/L (136-145); UREA NITROGEN 22 mg/dL (7-18); eGFR NON AFRICAN AMERICAN 79 mL/min (90-120)
[2019-04-16 06:25] LABS: ALT (SGPT) 20 U/L (10-68)
[2019-04-16 06:26] LABS: CARBON DIOXIDE 40.2 mmol/L (21.0-32.0)
--- NOTE | 2019-04-16 07:31 | NUR ---
REPORT RECEIVED. WILL CONTINUE WITH POC. PT CURRENTLY LYING ON RIGHT SIDE ASLEEP. GUARD AT BEDSIDE. CALL LIGHT W/I REACH. RR EVEN AND UNLABORED ON 3L 02. R.WRIST PIV IS SALINE LOCKED. PT IS NPO FOR PARACENTESIS. BUSCH IN PLACE AND DRAINING URINE. PT DENIES ANY NEEDS AT THIS TIME. NO S/S OF DISTRESS NOTED. WILL CTM.
[2019-04-16 08:11] LABS: HEPATITIS C ANTIBODY <0.1 S/CO RAT (0.0-0.9)
--- NOTE | 2019-04-16 10:34 | NUR ---
PT TRANSFERED TO SPECIALS. WILL CTM.
--- NOTE | 2019-04-16 11:54 | NUR ---
RECEIVED PT BACK FROM PARACENTESIS. PT IS AAO AND WILL BE ON BEDREST UNTIL 1330. ALBUMIN CURRENTLY INFUSING VIA R.HAND. VSS AND WNL. PT DENIES ANY NEEDS. WILL CTM.
[2019-04-16 12:45] LABS: PROTEIN - BODY FLUID 3.7 G/DL
--- NOTE | 2019-04-16 13:25 | CN ---
PATIENT NAME:MIRNA ESPINOZA MEDICAL RECORD: [id number] : 48 LOCATION:DGeovany D.2133 ADMIT DATE: 04/10/19 ACCOUNT: [id number] CONSULTING PHYSICIAN: MINNIE MARTIN MD REFERRING PHYSICIAN: MINNIE SCHULTZ MD DATE OF CONSULTATION: 04/13/2019 HISTORY OF PRESENT ILLNESS: A 68-year-old gentleman with a history of hypertension, obstructive pulmonary disease, reports he has basically a downward course over the past couple of months, dyspnea and shortness of breath, maddie orthopnea, decreased effort intolerance, admitted and found to have a pleural effusion, is feeling somewhat better, status post thoracentesis. We are asked to see him concerning his cardiovascular status. PAST MEDICAL HISTORY: Includes, 1. History of diabetes mellitus. 2. Hypertension. 3. Obstructive pulmonary disease. 4. Dyslipidemia. MEDICATIONS: Include Glucophage 500 mg p.o. b.i.d., Protonix 40 every day, Lasix 40 every day, aspirin 81 every day, simvastatin 20 every day, carvedilol 6.25 b.i.d., Aldactone 25 every day, Xopenex 2 puffs q.i.d., Flomax 0.4 every day, Proventil 2.5 mg inhaled q.i.d. SOCIAL HISTORY: Nonsmoker, nondrinker. Has had problems keeping up with his general ADLs. REVIEW OF SYSTEMS: The patient reports easy bruising but reports no swollen glands. The patient reports no fever, no night sweats, no significant weight gain, no significant weight loss. No significant exercise tolerance. The patient reports no dry eyes, no irritation, no vision change. Patient reports no difficulty hearing and no ear pain. Patient reports no frequent nose bleeds or nose and sinus problems. Patient reports on arm pain on exertion. No shortness of breath while lying down. No history of heart murmur. Patient reports no cough, no wheezing or coughing up blood. Patient reports no abdominal pain, no vomiting. Normal appetite. No diarrhea and not vomiting blood. No nausea and no constipation. Patient reports no incontinence. No difficulty urinating. No hematuria. No increased frequency. Patient reports no muscle aches. No weakness, no arthralgias, no back pain. No swelling of the extremities. Patient reports no abnormal mole, no jaundice, no rashes. Reports no loss of consciousness. No weakness and no numbness. No seizures, dizziness, or headaches. The patient reports no depression, no sleep disturbance, feeling safe in a relationship and no alcohol abuse. Patient reports on fatigue. Reports no runny nose or sinus pressure. No itching, no hives, and no frequent sneezing. PHYSICAL EXAMINATION: GENERAL: Chronically ill appearing, including temporal wasting. No acute distress. VITAL SIGNS: 113/68, pulse 90 and regular. HEENT: Normocephalic, atraumatic. NECK: No bruits noted. About 2 cm of JVD. HEART: Regular. No S3 gallop. LUNGS: Prolonged expiratory phase with expiratory wheezes. CONSULT REPORT [id number] MIRNA ESPINOZA ABDOMEN: Soft, nontender. Slight tympanic and distended. EXTREMITIES: Pulses, 2+ with no edema. IMPRESSION: A chronically ill appearing gentleman with a markedly elevated BNP. We will check echocardiographic study. Further recommendations based on clinical course. Again, this gentleman does appear to be quite chronically ill. TRANSINT:[id number] Voice Confirmation ID: [id number] DOCUMENT ID: [id number] MINNIE MARTIN MD at 1325 CC: [id number] DICTATION DATE: 04/13/19 1207 SPECIAL EDUCATION CLASSROOM AIDE: 04/13/192130 ADM IN [place] [id number] [place] [id number]
--- NOTE | 2019-04-16 13:25 | EC ---
PATIENT:MIRNA ESPINOZA DATE OF SERVICE: 04/10/19 SEX: M MEDICAL RECORD: [id number] DATE OF : [birth year] LOCATION:D.M2 D.213 AGE OF PATIENT: 68 ADMISSION DATE: 04/10/19 REFERRING PHYSICIAN: INTERPRETING PHYSICIAN: MINNIE MARTIN MD ECHOCARDIOGRAM REPORT ECHO CHARGES 4 ECHO COMPLETE Date: 04/13/19 CLINICAL DIAGNOSIS: CHF ECHOCARDIOGRAPHIC MEASUREMENTS (adult normal given) AC root (d.<3.7cm) 3.1 cm LV Septum d (<1.2 cm> 1.6 cm Valve Excursion 2.4 cm LV Septum (systole) 1.7 cm Left Atria (s.<4.0cm> 3.1 cm LVPW d(<1.2cm) 1.2 cm RV (d.<2.3cm) 2.8 cm LVPW (sytole) 1.4 cm LV diastole(<5.6CM) 4.7 cm MV E-F(>70mm/sec) cm LV systole 4.1 cm LVOT Diameter 2.1 cm MV exc.(>10mm) cm Est.ejection fraction (50-75%) % DOPPLER: LVIT cm/sec A 33 cm/sec E 52 cm/sec LA cm/sec RVSP 45.0 mmHg LVOT 84 cm/sec AOP1/2T m/s Asc. Ao 83 cm/sec RVOT 68 cm/sec RA cm/sec PA 70 cm/sec AV Gradient Peak 2.8 mmHg AV Mean 1.7 mmHg AV Area 2.7 cm MV Gradient Peak 2.4 mmHg MV Mean 1.2 mmHg MV Area cm COMMENTS: Rock Climbing Team Member: Scott [facility] Lock Tender Chief Operator: 3 Dr. Oconnor TAPE# PACS Pericardial Effusion N DATE OF SERVICE: Adequate 2D echo, color flow imaging, spectral Doppler, and M-Mode. LVH is present. LV internal dimension is normal. LV is mildly globally hypokinetic with mildly reduced EF, estimated EF 40% to 45%. Aortic valve is sclerosed without stenosis by Doppler interrogation. Left atrium is normal. Mitral valve shows no prolapse. Mild MR. Right-sided chambers are dilated. Moderate TR. RV systolic pressure estimated greater than or equal to 45 mmHg via the continuity equation. ECHOCARDIOGRAM REPORT [id number] MIRNA ESPINOZA TRANSINT:[id number] Voice Confirmation ID: [id number] DOCUMENT ID: [id number] MINNIE MARTIN MD at 1325 CC: [id number] DICTATION DATE: 04/14/19 1320 WOOD SCIENCE PROFESSOR: 04/14/19 1526 [facility] [place] [id number] [place] [id number]
[2019-04-16 13:34] LABS: MACROPHAGES BF 36 %; MESOTHELIALS BF 2 %; NEUT - BF 26 %
--- NOTE | 2019-04-16 15:42 | NUR ---
PT HAD LARGE ALEXEY COLORED BM. FORMED. CLEANED PT AND APPLIED NEW LINEN. PT DENIES ANY NEEDS. WILL CTM.
[2019-04-16 16:08] LABS: FUNGUS MYCOLOGY CULTURE Preliminary report (())
--- NOTE | 2019-04-16 16:08 | NUR ---
I AGREE WITH THE LPNS ASSESSMENT OF THIS PATIENT
--- NOTE | 2019-04-16 19:10 | NUR ---
BEDSIDE REPORT RECEIVED FROM DAY SHIFT, PT CARE ASSUMED. INTRODUCED SELF AND WROTE NAME ON BOARD. PT REQUESTING WATER AND BLANKET, PROVIDED. DENIES ANY OTHER NEEDS AT THIS TIME. OFFICER AT BEDSIDE. BED IN LOWEST POSITION, SR X1, CALL LIGHT WITHIN REACH. WILL CONTINUE TO MONITOR.
[2019-04-17] VITALS: BP 86/50
[2019-04-17 04:00] VITALS: BP 89/53
[2019-04-17 06:31] LABS: BASOPHILS 0.1 % (0-2); EOSINOPHILS 2.4 % (0-7); HEMATOCRIT 33.5 % (42.0-54.0); HEMOGLOBIN 10.3 g/dL (13.5-17.5); IMMATURE GRANULOCYTES 0.2 % (0-5); LYMPHOCYTES 15.7 % (15-50); MCH 25.2 pg (26.0-34.0); MCHC 30.7 g/dL (31.0-37.0); MCV 81.9 fL (80.0-100.0); MEAN PLATELET VOLUME 9.3 fL (7.4-10.4); MONOCYTES 9.7 % (2-11); NEUTROPHILS 71.9 % (40-80); PLATELET COUNT 303 10x3/uL (130-400); RBC 4.09 10x6/uL (4.20-6.10); RDW 19.2 % (11.5-14.5); WBC 10.4 10x3/uL (4.8-10.8)
[2019-04-17 06:53] LABS: CALC OSMOLALITY 282 mosm/kg (275-300); CALCIUM 8.1 mg/dL (8.5-10.1); CHLORIDE - SERUM 101 mmol/L (98-107); GLUCOSE 118 mg/dL (74-106); POTASSIUM - SERUM 3.6 mmol/L (3.5-5.1); SODIUM 139 mmol/L (136-145); UREA NITROGEN 25 mg/dL (7-18); eGFR NON AFRICAN AMERICAN 79 mL/min (90-120)
[2019-04-17 06:58] LABS: CARBON DIOXIDE 40.2 mmol/L (21.0-32.0)
--- NOTE | 2019-04-17 07:18 | NUR ---
REPORT RECEIVED. WILL CONTINUE WITH POC. PT CURRENTLY LYING SEMI FOWLERS. CALL LIGHT W/I REACH. PT IS AAO AND UP WITH ASSIST. GUARD AT BEDSIDE. RR EVEN AND UNLABORED ON 3L HIGH FLOW NC. R.HAND PIV IS SALINE LOCKED. BUSCH IN PLACE. PT DENIES ANY NEEDS. NO S/S OF DISTRESS NOTED. WILL CTM.
[2019-04-17 09:19] VITALS: BP 97/65
[2019-04-17 13:29] VITALS: BP 101/60
--- NOTE | 2019-04-17 14:57 | NUR ---
Nutrition Follow-up: Eating well. Paracentesis yesterday (-8 L). Diet: Diabetic PO intake: 100% Wt: 178.3# (04/16); 180# (04/14) Last BM: 04/17 Labs noted: Glu 118, Ca 8.1 Meds noted: vitamin B12, Humulin, Lasix -May consider low Na Diabetic diet. -Monitor wt; noted daily wts ordered. -RD following.
--- NOTE | 2019-04-17 15:39 | MORECARE ---
CASE MANAGEMENT DISCHARGE SUMMARY PATIENT: MIRNA ESPINOZA UNIT: [id number] ADM DATE: 04/10/19 AGE: 68 : [birth year] SEX: M ROOM/BED: D.2133 AUTHOR: BRI LAMAS PHYSICIAN: REFERRING PHYSICIAN: MINNIE SCHULTZ MD DATE OF SERVICE: 04/17/19 Discharge Plan Patient Name: [facility]IRNA ESPINOZA [facility] : 1950 Planned Disposition: Anticipated Discharge Date: Discharge Date: Expected LOS: Initial Reviewer: [email or web address] Initial Review Date: 04/10/2019 Generated: 04/17/19 4:38 pm Last DP export: 04/10/19 3:52 p Patient Name: MIRNA ESPINOZA Page [phone] at 1539 All edits/amendments must be made on the electronic document DICTATION DATE: 04/17/19 1538 CLERICAL STOCK INSPECTOR: XENIA 04/17/19 1538 RPT#: [id number] DC DATE: STATUS: ADM IN [facility] [address] [place] [address] END OF REPORT
--- NOTE | 2019-04-17 15:45 | MORECARE ---
CASE MANAGEMENT DISCHARGE SUMMARY PATIENT: MIRNA ESPINOZA UNIT: [id number] ADM DATE: 04/10/19 AGE: 68 : [birth year] SEX: M ROOM/BED: D.2133 AUTHOR: BRI LAMAS PHYSICIAN: REFERRING PHYSICIAN: MINNIE SCHULTZ MD DATE OF SERVICE: 04/17/19 Discharge Plan Patient Name: [facility]IRNA ESPINOZA [facility] : 1950 Planned Disposition: Anticipated Discharge Date: Discharge Date: Expected LOS: Initial Reviewer: [id number] Initial Review Date: 04/10/2019 Generated: 04/17/19 4:45 pm Comments DCP- Discharge Planning Updated by [id number]: Ca Felix on 04/17/19 2:[address] Patient Name: MIRNA ESPINOZA Admission Status: ER Accout number: [id number] Admission Date: 04-10-2019 : 1950 Admission Diagnosis: Attending: DOROTHEA Current LOS: 7 Anticipated DC Date: Planned Disposition: Primary Insurance: MEDICAID PENITENTIARY PENDING Discharge Planning Comments: REVIEWED CHART, PATIENT IS FROM [facility] AND PLAN WILL BE TO RETURN TO [facility] WHEN STABLE. CM TO FOLLOW AND ASSIST NEEDED. Bicycle Taxi Driver: Ca Felix DCPIA - Discharge Planning Initial Assessment Updated by [email or web address]: Ca Felix on 04/17/19 3:40 pm * [facility]CP [facility] * [facility] * Preadmission Environment Other * Facility Name [facility] * Additional services required to return to the preadmission environment? No * Can the patient safely return to the preadmission environment? Yes * Has this patient been hospitalized within the prior 30 days at any hospital? No Last DP export: 04/17/19 2:39 p Patient Name: MIRNA ESPINOZA Page [id number] at 1549 All edits/amendments must be made on the electronic document DICTATION DATE: 04/17/191544 HEAVY TRUCK DRIVER: XENIA 04/17/191544 RPT#: [id number] DC DATE: STATUS: ADM IN [facility] [address] [place] [address] END OF REPORT
[2019-04-17 18:37] VITALS: BP 109/68
--- NOTE | 2019-04-17 19:10 | NUR ---
BEDSIDE REPORT RECEIVED FROM DAY SHIFT, PT CARE ASSUMED. WROTE NAME ON BOARD. PT LYING IN BED, AAOX4. REQUESTING WATER, PROVIDED. DENIES ANY OTHER NEEDS AT THIS TIME. OFFICER AT BEDSIDE. BED IN LOWEST POSITION, SR X2, CALL LIGHT WITHIN REACH. WILL CONTINUE TO MONITOR.
[2019-04-17 20:00] VITALS: BP 100/58
[2019-04-18] VITALS (20 sets, daily range): BP systolic 80–115; BP diastolic 55–77
[2019-04-18 06:05] LABS: BASOPHILS 0.1 % (0-2); EOSINOPHILS 2.2 % (0-7); HEMOGLOBIN 9.9 g/dL (13.5-17.5); IMMATURE GRANULOCYTES 0.4 % (0-5); LYMPHOCYTES 16.5 % (15-50); MCH 25.1 pg (26.0-34.0); MCHC 30.9 g/dL (31.0-37.0); MEAN PLATELET VOLUME 9.6 fL (7.4-10.4); MONOCYTES 9.3 % (2-11); NEUTROPHILS 71.5 % (40-80); PLATELET COUNT 305 10x3/uL (130-400); RBC 3.95 10x6/uL (4.20-6.10); RDW 19.8 % (11.5-14.5); WBC 10.4 10x3/uL (4.8-10.8)
[2019-04-18 06:39] LABS: CALC OSMOLALITY 282 mosm/kg (275-300); CALCIUM 7.9 mg/dL (8.5-10.1); CARBON DIOXIDE 35.3 mmol/L (21.0-32.0); CHLORIDE - SERUM 99 mmol/L (98-107); CREATININE - SERUM 0.8 mg/dL (0.6-1.3); GLUCOSE 126 mg/dL (74-106); POTASSIUM - SERUM 3.7 mmol/L (3.5-5.1); SODIUM 139 mmol/L (136-145); UREA NITROGEN 22 mg/dL (7-18); eGFR NON AFRICAN AMERICAN > 90 mL/min (90-120)
--- NOTE | 2019-04-18 07:05 | NUR ---
PT SITTING UP IN BED. RR EVEN AND UNLABORED. GUARD AT BEDSIDE. RECIEVED COFFEE PER REQUEST. DENIES FURTHER NEEDS OR PAIN AT THIS TIME. BED IN LOWEST POSITION. CALL LIGHT WITHIN REACH. WILL CONTIUE TO MONITOR.
--- NOTE | 2019-04-18 11:43 | NUR ---
IV LEAKING. D/C WITH CATHETER TIP INTACT. RESITED X2 ATTEMPTS TO LEFT UPPER ARM. 20G.
--- NOTE | 2019-04-18 12:13 | NUR ---
I have reviewed this patient and I concur with the Shift Assessment completed by the Licensed Practical Nurse today this shift.
--- NOTE | 2019-04-18 18:19 | NUR ---
PT CATHETER LEAKING AROUND INSERTION SITE. ATTEMPTED TO INCREASE BALLOON VOLUME WITH NO SUCCESS. BALLOON DEFLATED AND CATHETER REMOVED WITH TIP INTACT. 18F CATHETER REPLACED. PT TOLERATED WELL.
--- NOTE | 2019-04-18 19:10 | NUR ---
BEDSIDE REPORT RECEIVED FROM DAY SHIFT, PT CARE ASSUMED. WROTE NAME ON BOARD. PT LYING IN BED, WATCHING TV, AAOX4. DENIES ANY NEEDS AT THIS TIME. OFFICER AT BEDSIDE. BED IN LOWEST POSITION, SR X2, CALL LIGHT WITHIN REACH. WILL CONTINUE TO MONITOR.
--- NOTE | 2019-04-18 22:00 | NUR ---
PT BROUGHT TO [facility] FROM ROOM 2133 AFTER POST CARDIAC ARREST, PT IS UNRESPONSIVE AND INTUBATED, PT MOVED TO ICU BED AND CONNECTED TO MONITORS AND CONNECTED TO THE VENT. BILAT WRIST RESTRAINTS PLACED, [facility] GUARD AT BEDSIDE.
--- NOTE | 2019-04-18 22:20 | NUR ---
STARTED 20G IV CATH IN RIGHT UPPER ARM, PATENT WITH GOOD BLOOD RETURN
--- NOTE | 2019-04-18 22:35 | NUR ---
DR HUGHES CALLED FOR ORDERS DUE TO PT HAVING CARDIAC ARREST AND ON VENT SUPPORT, NEW ORDERS NOTED
--- NOTE | 2019-04-18 22:40 | NUR ---
PLACED 18 FR OGT, VERIFIED PLACEMENT WITH AUSCILTATION
--- NOTE | 2019-04-18 23:00 | NUR ---
PT SEDATED ON VENT AT THIS TIME, VSS AT THIS TIME ON LEVOPHED, GUARD AT BEDSIDE, WILL MONITOR FOR CHANGES
[2019-04-19] VITALS (93 sets, daily range): BP systolic 84–119; BP diastolic 56–78
--- NOTE | 2019-04-19 01:00 | NUR ---
PT SEDATED ON VENT SUPPORT, VSS AT THIS TIME, NO CHANGES NOTED IN PT COND.
--- NOTE | 2019-04-19 03:00 | NUR ---
PT REASSESSMENT COMPLETED AT THIS TIME, NO CHANGES NOTED, VSS
--- NOTE | 2019-04-19 05:19 | NUR ---
PT GIVEN CHG BATH AT THIS TIME, VSS, NO CHANGES
[2019-04-19 06:05] LABS: BASOPHILS 0.2 % (0-2); EOSINOPHILS 1.6 % (0-7); HEMATOCRIT 32.9 % (42.0-54.0); HEMOGLOBIN 10.3 g/dL (13.5-17.5); IMMATURE GRANULOCYTES 0.6 % (0-5); LYMPHOCYTES 15.6 % (15-50); MCH 25.2 pg (26.0-34.0); MCHC 31.3 g/dL (31.0-37.0); MCV 80.6 fL (80.0-100.0); MEAN PLATELET VOLUME 9.2 fL (7.4-10.4); MONOCYTES 9.6 % (2-11); NEUTROPHILS 72.4 % (40-80); RBC 4.08 10x6/uL (4.20-6.10); RDW 19.7 % (11.5-14.5)
[2019-04-19 06:07] LABS: PLATELET COUNT 370 10x3/uL (130-400); WBC 15.8 10x3/uL (4.8-10.8)
[2019-04-19 06:18] LABS: CALC OSMOLALITY 280 mosm/kg (275-300); CALCIUM 7.8 mg/dL (8.5-10.1); CARBON DIOXIDE 33.7 mmol/L (21.0-32.0); CHLORIDE - SERUM 99 mmol/L (98-107); GLUCOSE 149 mg/dL (74-106); POTASSIUM - SERUM 4.1 mmol/L (3.5-5.1); SODIUM 137 mmol/L (136-145); UREA NITROGEN 23 mg/dL (7-18); eGFR NON AFRICAN AMERICAN 79 mL/min (90-120)
--- NOTE | 2019-04-19 06:45 | NUR ---
Called to see patient on the floor who had no spontaneous pulse or respirations..CPR was in progress and we continue with ACLS protocols using IV epinephrine.Patient was subsequently intubated with a MAC blade and a 7.5 ET tube on first attempt without difficulty.Patient soon regained a spontaneous pulse.Patient was transferred to ICU for further management of his critical illness
--- NOTE | 2019-04-19 07:00 | NUR ---
PATEINT RESPONSE TO PAINFUL STIMULI MOVES BOTH ARMS TO PAIN. DOES NOT OBEY COMMANDS. BILATERAL LUNG SOUNDS LEFT LUNG BREATH SOUNDS GREATER THAN RIGHT. ABD LARGE DISTENDED LOOKING BUT SOFT. IV LEFT UPPER ARM INFUSING WITH DIPRIVAN AT 45 MCG/KG/MIN, LEVOPHED AT 5 MCG AND NS AT 50 ML HOUR. BUSCH CATH PATENT. HEAD OF BED ELEVATED 30 DEGREES. MONITOR SR WITH PAC.
--- NOTE | 2019-04-19 07:29 | NUR ---
DR. SHARP NOTIFIED PUPILS NOT EQUAL. ORDERS FOR CT SCAN RECEIVED. RESP THERAPY NOTIFIED
[2019-04-19 08:19] LABS: MAGNESIUM - SERUM 1.4 mg/dL (1.8-2.4); PHOSPHOROUS 3.4 mg/dL (2.5-4.9)
--- NOTE | 2019-04-19 08:33 | NUR ---
HERE, EXAMINE PATIENT.UPDATE GIVEN
--- NOTE | 2019-04-19 08:53 | NUR ---
[facility] CALLED TO REVIEW SPECIALIST TO GIVE CONSENT FOR BRONCHOSCOPY. STATES THEY WOULD CALL US BACK.
[2019-04-19 15:07] LABS: PROTEIN - BODY FLUID 3.6 G/DL
--- NOTE | 2019-04-19 19:00 | NUR ---
PT ASSESSMENT COMPLETED AT THIS TIME, NO CHANGES NOTED FROM NURSE REPORT, PT REMAINS SEDATED ON THE VENT, VSS, WILL MONITOR FOR CHANGES
--- NOTE | 2019-04-19 21:00 | NUR ---
PT REMAINS ON SEDATION AND VENT SUPPORT AT THIS TIME, NO CHANGES NOTED, VSS, WILL MONITOR FOR CHANGES
--- NOTE | 2019-04-19 23:00 | NUR ---
pt reassessment completed at this time, no changes noted from previous, pt remains sedated on vent support, will monitor for changes
[2019-04-20] VITALS (90 sets, daily range): BP systolic 89–120; BP diastolic 62–78
--- NOTE | 2019-04-20 01:00 | NUR ---
PT CONTINUES TO BE SEDATED AND ON VENT SUPPORT, VSS, NO CHANGES AT THIS TIME
--- NOTE | 2019-04-20 03:18 | NUR ---
PT REASSESSMENT COMPLETED AT THIS TIME, NO CHANGES NOTED FROM PREVIOUS, VSS
--- NOTE | 2019-04-20 05:00 | NUR ---
PT REAMAINS SEDATED ON VENT SUPPORT, VSS AT THIS TIME, NO CHANGES NOTED
[2019-04-20 06:09] LABS: BASOPHILS 0.2 % (0-2); EOSINOPHILS 3.3 % (0-7); HEMATOCRIT 33.6 % (42.0-54.0); HEMOGLOBIN 10.5 g/dL (13.5-17.5); IMMATURE GRANULOCYTES 0.5 % (0-5); MCH 25.2 pg (26.0-34.0); MCHC 31.3 g/dL (31.0-37.0); MCV 80.6 fL (80.0-100.0); MONOCYTES 10.1 % (2-11); NEUTROPHILS 66.9 % (40-80); PLATELET COUNT 334 10x3/uL (130-400); RBC 4.17 10x6/uL (4.20-6.10); RDW 20.3 % (11.5-14.5)
[2019-04-20 06:34] LABS: CALC OSMOLALITY 282 mosm/kg (275-300); CALCIUM 7.8 mg/dL (8.5-10.1); CARBON DIOXIDE 30.4 mmol/L (21.0-32.0); CHLORIDE - SERUM 101 mmol/L (98-107); CREATININE - SERUM 0.9 mg/dL (0.6-1.3); GLUCOSE 118 mg/dL (74-106); POTASSIUM - SERUM 3.5 mmol/L (3.5-5.1); SODIUM 139 mmol/L (136-145); UREA NITROGEN 23 mg/dL (7-18); eGFR NON AFRICAN AMERICAN 89 mL/min (90-120)
[2019-04-20 06:43] LABS: WBC 10.7 10x3/uL (4.8-10.8)
--- NOTE | 2019-04-20 07:00 | NUR ---
PT RESTING IN BED, VSS AND WNL. ETT SECURED. NO SIGNS OF DISTRESS NOTED. BUSCH CATHETER DRAINING DARK URINE FREELY WITH NO LOOPS NOTED. BED ALARM ON, GAURD AT BEDSIDE, WILL CONT TO FOLLOW POC
--- NOTE | 2019-04-20 09:00 | NUR ---
PT RESTING IN BED, VSS AND WNL. BED ALARM ON. ETT SECURED. GAURD AT BEDSIDE. NO SIGNS OF DISTRESS NOTED. BUSCH CATHETER DRAINING DARK URINE VIA GRAVITY WITH NO LOOPS. PT REPOSITIONED. WILL CONT TO FOLLOW POC
--- NOTE | 2019-04-20 11:00 | NUR ---
PT RESTING IN BED, VSS AND WNL. ETT SECURED. GAURD AT BEDSIDE, NO SIGNS OF DISTRESS NOTED, BED ALARM ON, WILL CONT TO FOLLOW POC
--- NOTE | 2019-04-20 11:30 | NUR ---
HERE AND GAVE ORDER TO HAVE PICC LINE PLACED. NOTIFIED VASCULAR ACCESS NURSE.
--- NOTE | 2019-04-20 12:43 | NUR ---
VASCULAR ACCESS NURSE HERE, UNABLE TO OBTAIN CONSENT DUE TO COMMUNITY HEALTH AGENT BEING OFF FOR HOLIDAY. WILL TRY TO OBTAIN CONSENT TOMORROW
--- NOTE | 2019-04-20 13:03 | NUR ---
Nutrition Follow-up: Intubated following cardiac arrest 04/18. Paracentesis 04/16 (-8 L). Noted I/O on 04/19 (-3790). Diet: NPO Wt: 166.4# (04/20); 178.3# (04/16) Last BM: 04/19 per chart Labs ntoed: Glu 118, Ca 7.8, Mg 1.5 Meds noted: Diprivan, Mag Sulfate -If pt is to remain intubated, rec initiate nutrition support as medically feasible; pt NPO since intubation on 04/18. -Monitor wt. -RD following.
--- NOTE | 2019-04-20 14:09 | NUR ---
PT RESTING IN BED, VSS AND WNL. ETT SECURED. GAURD AT BEDSIDE, BUSCH CATHETER DRAINGING DARK URINE FREELY WITH NO LOOPS NOTED. NO SIGNS OF DISTRESS NOTED. PT REPOSITIONED. WILL CONT TO FOLLOW POC
--- NOTE | 2019-04-20 16:00 | NUR ---
PULMOCARE STARTED AT 15ML/HR ORDERED, GAURD AT BEDSIDE, ETT SECURED, NO SIGNS OF DISTRESS NOTED, WILL CONT TO FOLLOW POC
--- NOTE | 2019-04-20 18:09 | NUR ---
PT RESTING IN BED, VSS AND WNL. ETT SECURED. NO SIGNS OF DISTRESS NOTED, GAURD AT BEDSIDE, WILL CONT TO FOLLOW POC
--- NOTE | 2019-04-20 19:00 | NUR ---
BEDSIDE REPORT AND SHIFT ASSESSMENT COMPLETE, SEE FLOWSHEET. PT SEDATED, OPENS EYES. GUARD AT BEDSIDE. L UPPER ARM AND R UPPER ARM PIV PATENT, SEE IV FLOWSHEET. BUSCH WITH APOORVA UOP. OGT WITH PULMOCARE @ 10 ML/HR. SCD'S IN PLACE. WILL MONITOR.
--- NOTE | 2019-04-20 21:00 | NUR ---
MEDS GIVEN PER MAY. PT HAD A RUN OF VTACH AND IMMEDIATELY CONVERTED BACK TO NSR. STAT K AND MAG ORDERED, LAB NOTIFIED. 120 ML RESIDUAL FROM OGT, FEEDINGS RESUMED AT CURRENT RATE OF 15 ML WITH 50 ML WATER FLUSH. WILL MONITOR.
[2019-04-20 22:25] LABS: MAGNESIUM - SERUM 2.1 mg/dL (1.8-2.4); POTASSIUM - SERUM 3.8 mmol/L (3.5-5.1)
--- NOTE | 2019-04-20 23:00 | NUR ---
REASSESSMENT COMPLETE, SEE FLOWSHEET.
[2019-04-21] VITALS (99 sets, daily range): BP systolic 80–119; BP diastolic 54–75
--- NOTE | 2019-04-21 | NUR ---
145 ML RESIDUAL, AIR NOTED IN ABD WHEN CHECKING RESIDUAL. TUBE FEEDING NOT ADVANCED, CONTINUE RATE OF 15 ML/HR.
--- NOTE | 2019-04-21 01:50 | NUR ---
ARRYTHMIA NOTED ON MONITOR, STRIP PRINTED. WILL MONITOR.
--- NOTE | 2019-04-21 02:10 | NUR ---
PAGED DR VINSON.
--- NOTE | 2019-04-21 02:15 | NUR ---
DR VINSON RETURNED PAGE, NEW ORDERS RECEIVED.
--- NOTE | 2019-04-21 03:00 | NUR ---
REASSESSMENT COMPLETE, SEE FLOWSHEET.
[2019-04-21 04:47] LABS: BASOPHILS 0.2 % (0-2); EOSINOPHILS 2.4 % (0-7); HEMATOCRIT 34.9 % (42.0-54.0); HEMOGLOBIN 10.9 g/dL (13.5-17.5); IMMATURE GRANULOCYTES 0.4 % (0-5); LYMPHOCYTES 11.8 % (15-50); MCH 25.3 pg (26.0-34.0); MCHC 31.2 g/dL (31.0-37.0); MEAN PLATELET VOLUME 9.5 fL (7.4-10.4); MONOCYTES 7.7 % (2-11); NEUTROPHILS 77.5 % (40-80); PLATELET COUNT 392 10x3/uL (130-400); RBC 4.31 10x6/uL (4.20-6.10); RDW 20.1 % (11.5-14.5); WBC 10.6 10x3/uL (4.8-10.8)
--- NOTE | 2019-04-21 05:00 | NUR ---
150 ML RESIDUAL FROM OGT, FEEDING NOT ADVANCED.
[2019-04-21 05:23] LABS: ALKALINE PHOSPHATASE 84 U/L (46-116); ALT (SGPT) 16 U/L (10-68); BILIRUBIN - TOTAL 0.51 mg/dL (0.2-1.3); CALC OSMOLALITY 279 mosm/kg (275-300); CALCIUM 7.8 mg/dL (8.5-10.1); CARBON DIOXIDE 31.4 mmol/L (21.0-32.0); CHLORIDE - SERUM 100 mmol/L (98-107); CREATININE - SERUM 0.8 mg/dL (0.6-1.3); GLUCOSE 133 mg/dL (74-106); MAGNESIUM - SERUM 2.1 mg/dL (1.8-2.4); PHOSPHOROUS 4.1 mg/dL (2.5-4.9); POTASSIUM - SERUM 3.7 mmol/L (3.5-5.1); PROTEIN - SERUM 5.6 g/dL (6.4-8.2); SODIUM 138 mmol/L (136-145); UREA NITROGEN 18 mg/dL (7-18); eGFR NON AFRICAN AMERICAN > 90 mL/min (90-120)
--- NOTE | 2019-04-21 07:30 | NUR ---
PT RESTING IN BED, ETT SECURED, GAURD AT BEDSIDE, VSS AND WNL. BUSCH CATHETER DRAINING DARK URINE FREELY VIA GRAVITY. OVERNIGHT NURSE STATES PT RESIDUAL WAS >150 ALL NIGHT, TURNED OFF TF. BED ALARM ON. NO SIGNS OF DISTRESS NOTED AT THIS TIME, WILL CONT TO FOLLOW POC
--- NOTE | 2019-04-21 09:30 | NUR ---
RESIDUAL CHECKED, 100CC OBTAINED. RESTARTED TF AT 15ML/HR. WILL RECHECK RESIDUAL ORDERED. BED ALARM ON, ETT SECURED, GAURD AT BEDSIDE, NO SIGNS OF DISTRESS NOTED AT THIS TIME, WILL CONT TO FOLLOW POC
--- NOTE | 2019-04-21 11:13 | NUR ---
PT RESTING IN BED, VSS AND WNL, ETT SECURED, NO SIGNS OF DISTRESS NOTED AT THIS TIME, BUSCH CATHETER DRAINING DARK URINE VIA GRAVITY WITH NO LOOPS NOTED. BED ALARM ON. ANU AT BEDSIDE, WILL CONT TO FOLLOW POC
--- NOTE | 2019-04-21 12:01 | NUR ---
Nutrition Follow-up: TF not advanced overnight 2/2 residuals (145 cc & 150 cc) and held this AM x 2 hrs; residuals after hold were 100 cc and TF restarted at 15 mL/hr. Diet: Pulmocare - goal rate 50 mL/hr H2O 50 mL q 4 hrs Wt: 165.3# (04/21); 166.4# (04/20); 178.3# (04/16) Last BM: 04/19 Labs noted: Glu 133, Ca 7.8, Alb 2.0 Meds noted: Diprivan, Mag Sulfate -Cont to advance TF as tolerated to goal rate. -Rec GI motility agent. -Monitor wt. -RD following.
--- NOTE | 2019-04-21 13:30 | NUR ---
SPOKE TO ISH WHITNEY WITH THE DIRECTOR OF HEALTH SERVICES WITH [facility] ([phone]). PER , PT SIGNED A AUTHORIZATION OF REALEASE OF PERSONAL INFORMATION PRIOR TO HOSPITALIZATION. PT GAVE PERMISSION TO HIS BROTHER, MARIO ESPINOZA. PER , MARIO ESPINOZA CAN CALL AND SPEAK TO NURSES/MD AND IS OK TO GIVE CONSENT FOR OPERATIONS/PROCEDURES. NURSE SPOKE WITH MARIO ESPINOZA AND GAVE UPDATE ON PT STATUS. MARIO ESPINOZA IS NOT OPEN TO DNR AT THIS TIME. TELEPHONE CONSENT FOR PICC OBTAINED WITH SECOND NURSE WITNESS. NOTIFIED VASCULAR ACCESS THAT CONSENT FOR PICC IS COMPLETED. WILL CONT TO FOLLOW POC
--- NOTE | 2019-04-21 15:27 | NUR ---
PT RESTING IN BED, VSS AND WNL. BED ALARM ON. ETT SECURED, NO SIGNS OF DISTRESS NOTED, PT REPOSITIONED. TLD AT BEDSIDE, WILL CONT TO FOLLOW POC
--- NOTE | 2019-04-21 16:00 | NUR ---
PIV TO RIGHT UPPER ARM INFILTRATED. PIV REMOVED WITH CATHETER TIP INTACT.
--- NOTE | 2019-04-21 17:00 | NUR ---
PAGED VASCULAR ACCESS NURSE TO REMIND HER OF NEED FOR PICC LINE, LEFT VM
--- NOTE | 2019-04-21 17:14 | NUR ---
PT RESTING IN BED, VSS AND WNL, ETT SECURED, GAURD AT BEDSIDE, NO SIGNS OF DISTRESS NOTED, WILL CONT TO FOLLOW POC
--- NOTE | 2019-04-21 18:05 | NUR ---
PT RESTING IN BED, VSS AND WNL, BED ALARM ON. ETT SECURED, NO SIGNS OF DISTRESS NOTED, WILL CONT TO FOLLOW POC
--- NOTE | 2019-04-21 19:00 | NUR ---
ASSESSMENT DONE SEE FLOW SHEET VSS NO SIGNS OF ACUTE DISTRESS NOTED. GAURD AT BEDSIDE WILL CONTINUE TO MONITOR.
--- NOTE | 2019-04-21 21:00 | NUR ---
MEDS GIVEN PER MAY. VSS. SEDATION VACATION GIVEN. PT FOLLOWS COMMANDS. NO SIGNS OF ACUTE DISTRESS NOTED. WILL CONITINUE TO MONITOR.
[2019-04-22] VITALS (90 sets, daily range): BP systolic 83–138; BP diastolic 51–86
[2019-04-22 05:42] LABS: BASOPHILS 0.2 % (0-2); EOSINOPHILS 2.6 % (0-7); HEMATOCRIT 32.5 % (42.0-54.0); HEMOGLOBIN 10.3 g/dL (13.5-17.5); IMMATURE GRANULOCYTES 0.4 % (0-5); LYMPHOCYTES 15.3 % (15-50); MCHC 31.7 g/dL (31.0-37.0); MCV 82.1 fL (80.0-100.0); MEAN PLATELET VOLUME 10.5 fL (7.4-10.4); MONOCYTES 10.3 % (2-11); NEUTROPHILS 71.2 % (40-80); PLATELET COUNT 387 10x3/uL (130-400); RBC 3.96 10x6/uL (4.20-6.10); RDW 20.4 % (11.5-14.5); WBC 9.6 10x3/uL (4.8-10.8)
[2019-04-22 05:48] LABS: INR 1.07 (0.85-1.17); PROTIME 13.8 SECONDS (11.6-15.0)
[2019-04-22 06:24] LABS: ALBUMIN 1.7 g/dL (3.4-5.0); ALKALINE PHOSPHATASE 78 U/L (46-116); ALT (SGPT) 14 U/L (10-68); BILIRUBIN - TOTAL 0.54 mg/dL (0.2-1.3); CALC OSMOLALITY 281 mosm/kg (275-300); CARBON DIOXIDE 28.6 mmol/L (21.0-32.0); CHLORIDE - SERUM 104 mmol/L (98-107); CREATININE - SERUM 0.8 mg/dL (0.6-1.3); GLUCOSE 120 mg/dL (74-106); POTASSIUM - SERUM 3.3 mmol/L (3.5-5.1); SODIUM 140 mmol/L (136-145); UREA NITROGEN 17 mg/dL (7-18); eGFR NON AFRICAN AMERICAN > 90 mL/min (90-120)
[2019-04-22 06:30] LABS: CALCIUM 6.9 mg/dL (8.5-10.1)
--- NOTE | 2019-04-22 07:00 | NUR ---
PT RESTING IN BED, VSS AND WNL. BED ALARM ON. ETT SECURED. GAURD AT BEDSIDE, NO SIGNS OF DISTRESS NOTED, WILL CONT TO FOLLOW POC
--- NOTE | 2019-04-22 07:00 | NUR ---
PT RESTING IN BED, VSS AND WNL, ETT SECURED. BED ALARM ON. AUN AT BEDSIDE, BUSCH CATHETER DRAINING URINE FREELY VIA GRAVITY, NO SIGNS OF DISTRESS NOTED. WILL CONT TO FOLLOW POC
--- NOTE | 2019-04-22 09:06 | NUR ---
PT RESTING IN BED, VSS AND WNL. ETT SECURED. GAURD AT BEDSIDE, NO SIGNS OF DISTRESS NOTED. WILL CONT TO FOLLOW POC
--- NOTE | 2019-04-22 11:00 | NUR ---
PT RESTING IN BED, VSS AND WNL, ETT SECURED, NO SIGNS OF DISTRESS NOTED, GAURD AT BEDSIDE, WILL CONT TO FOLLOW POC
[2019-04-22 11:10] LABS: FUNGUS STAIN Final report (())
[2019-04-22 11:10] LABS: FUNGUS STAIN Final report (())
--- NOTE | 2019-04-22 11:45 | NUR ---
VASCULAR ACCESS NURSE HERE TO PLACE PICC
--- NOTE | 2019-04-22 12:00 | NUR ---
RESIDUAL 100, INCREASED TF TO 25ML/HR ORDERED. GAURD AT BEDSIDE, ETT SECURED. NO SIGNS OF DISTRESS NOTED, WILL CONT TO FOLLOW POC
--- NOTE | 2019-04-22 14:00 | NUR ---
PT RESTING IN BED, VSS AND WNL. ETT SECURED. NO SIGNS OF DISTRESS NOTED. GAURD AT BEDSIDE, WILL CONT TO FOLLOW POC
--- NOTE | 2019-04-22 14:15 | NUR ---
Nutrition Follow-up: Remains intubated. Noted TF advanced to 25 mL/hr. No recorded BM since 04/18; discussed with RN. Noted Miralax now added. Diet: Pulmocare - goal rate 50 mL/hr H2O flushes 50 mL q 4 hrs Wt: 223.7# (04/22); 223.7# (04/20) Labs noted: Glu 120, K+ 3.3 -> 4.0, Ca 6.9, Alb 1.7 Meds noted: Diprivan, Levophed, KCl, Miralax -Continue to advance TF to goal rate as tolerated. -If pt does not have a BM, may consider alternate GI motility agent. -Monitor wt. -RD following.
--- NOTE | 2019-04-22 16:00 | NUR ---
PT RESTING IN BED, ETT SECURED. VSS AND WNL. GAURD AT BEDSIDE, NO SIGNS OF DISTRESS NOTED. BED ALARM ON. WILL CONT TO FOLLOW POC
--- NOTE | 2019-04-22 18:00 | NUR ---
PT RESTING IN BED, VSS AND WNL, ETT SECURED. BED ALARM ON. TLD AT BEDSIDE, WILL CONT TO FOLLOW POC
--- NOTE | 2019-04-22 19:28 | NUR ---
REPORT RECEIVED, SHIFT ASSESSMENT COMPLETED PER FLOW SHEET, SEE FOR DETAILS. RANCH RIDER AT BEDSIDE. PATIENT SEDATED ON VENT. 2030 TUBE FEEDING INCREASED TO 35 ML/HR PER DOCTOR'S ORDERS. 2126 SCHEDULED MEDS GIVEN, SEE EMAR FOR DETAILS. 2316 REASSESSMENT COMPLETED PER FLOW SHEET, SEE FOR DETAILS.
[2019-04-23] VITALS (87 sets, daily range): BP systolic 80–120; BP diastolic 44–71
--- NOTE | 2019-04-23 01:00 | NUR ---
REPOSITIONED IN BED, ORAL CARE PROVIDED, NO ACUTE DISTRESS NOTED. WILL CONTINUE TO MONITOR. 0240 16 ML TUBE FEEDING RESIDUAL, TUBE FEEDING INCREASED TO 45 ML/HR PER DOCTOR'S ORDERS. 0304 REASSESSMENT COMPLETED PER FLOW SHEET, SEE FOR DETAILS. NO ACUTE CHANGES NOTED. WILL CONTINUE TO MONITOR.
[2019-04-23 04:34] LABS: BASOPHILS 0.2 % (0-2); EOSINOPHILS 3.1 % (0-7); HEMATOCRIT 33.9 % (42.0-54.0); HEMOGLOBIN 10.6 g/dL (13.5-17.5); IMMATURE GRANULOCYTES 0.6 % (0-5); LYMPHOCYTES 16.6 % (15-50); MCH 25.5 pg (26.0-34.0); MCHC 31.3 g/dL (31.0-37.0); MCV 81.7 fL (80.0-100.0); NEUTROPHILS 69.5 % (40-80); PLATELET COUNT 393 10x3/uL (130-400); RBC 4.15 10x6/uL (4.20-6.10); RDW 20.2 % (11.5-14.5); WBC 9.6 10x3/uL (4.8-10.8)
[2019-04-23 04:59] LABS: ALBUMIN 1.8 g/dL (3.4-5.0); ALKALINE PHOSPHATASE 86 U/L (46-116); ALT (SGPT) 15 U/L (10-68); BILIRUBIN - TOTAL 0.34 mg/dL (0.2-1.3); CALC OSMOLALITY 282 mosm/kg (275-300); CALCIUM 7.5 mg/dL (8.5-10.1); CARBON DIOXIDE 28.9 mmol/L (21.0-32.0); CHLORIDE - SERUM 104 mmol/L (98-107); CREATININE - SERUM 0.6 mg/dL (0.6-1.3); GLUCOSE 133 mg/dL (74-106); MAGNESIUM - SERUM 2.1 mg/dL (1.8-2.4); PHOSPHOROUS 3.6 mg/dL (2.5-4.9); PROTEIN - SERUM 4.9 g/dL (6.4-8.2); SODIUM 140 mmol/L (136-145); UREA NITROGEN 17 mg/dL (7-18); eGFR NON AFRICAN AMERICAN > 90 mL/min (90-120)
--- NOTE | 2019-04-23 05:20 | NUR ---
X1 LIQUID BM. COMPLETE BED BATH GIVEN. COMPLETE BED LINEN CHANGE. BUSCH CARE PROVIDED. TOLERATED WELL.
--- NOTE | 2019-04-23 09:35 | NUR ---
0700 PT RECIEVED ALERT AND ORIENTED VSS R PICC DRESSING CDI, SEE IV FLOWSHEET, OGT WITH PUMOCARE INFUSING, ETT SECURED, BUSCH DRAINING, DRESSING ON BUTTOCK CDI, REPOSITIONED. 0900 AM MEDS GIVEN, REPOSITIONED, TUBE FEEDING INCREASED TO GOAL AND TUBING CHANGED. GUARD AT BEDSIDE
[2019-04-23 17:08] LABS: FUNGUS MYCOLOGY CULTURE Preliminary report (())
[2019-04-23 17:08] LABS: FUNGUS MYCOLOGY CULTURE Preliminary report (())
--- NOTE | 2019-04-23 17:09 | NUR ---
PT REPOSITIONED E1FFXAL THROUGHOUT DAY WITH FREQUENT ORAL CARE AND SUCTIONING, NO BMS NOTED BUT IS PASSING GAS, WHEN PROPOFOL BOTTLE EMPTIED SWITCHED SEDATION TO FENTANYL AND TITRATED PER DIRECTOR PROJECT MANAGEMENT FLOWSHEET. GUARD AT BEDSIDE THROUGHOUT SHIFT, WILL CONTINUE TO MONITOR
--- NOTE | 2019-04-23 17:58 | NUR ---
AFTER REPOSITIONING AT 1700 PT SPO2 DROPPING INTO 80S, SUCTIONED AND CONTINUED IN THE 80S, RT NOTIFIED AND INCREASED FIO2 TO 40
--- NOTE | 2019-04-23 18:05 | NUR ---
PTS FAMILY HAS CALLED TWICE TODAY REQUESTING UPDATES ON PT, PER GUARD AT BEDSIDE PTS FAMILY IS TO CALL THE HALFWAY TICKETING AGENT FOR UPDATES. TOLD FAMILY BOTH TIMES TO CALL HALFWAY TICKETING AGENT FOR UPDATES.
--- NOTE | 2019-04-23 19:27 | NUR ---
REPORT RECEIVED, SHIFT ASSESSMENT COMPLETED PER FLOW SHEET, SEE FOR DETAILS. SEDATED ON VENT, OPENS EYES. ADMITTANCE ATTENDANT AT BEDSIDE. WILL CONTINUE TO MONITOR. 2103 SCHEDULED MEDS GIVEN, SEE EMAR FOR DETAILS. 2306 REASSESSMENT COMPLETED PER FLOW SHEET, SEE FOR DETAILS.
[2019-04-24] VITALS (95 sets, daily range): BP systolic 81–129; BP diastolic 19–81
--- NOTE | 2019-04-24 01:00 | NUR ---
ORAL CARE PROVIDED, REPOSITIONED IN BED. NO ACUTE CHANGES NOTED. WILL CONTINUE TO MONITOR. 0200 FEEDING RESIDUAL 200 ML, TUBE FEEDINGS OFF AT THIS TIME. WILL REASSESS. 0400 TUBE FEEDING RESIDUAL 120 ML, TUBE FEEDINGS TURNED ON AT 25 ML/HR. WILL CONTINUE TO MONITOR.
[2019-04-24 05:55] LABS: ALBUMIN 1.9 g/dL (3.4-5.0); ALKALINE PHOSPHATASE 99 U/L (46-116); ALT (SGPT) 16 U/L (10-68); BILIRUBIN - TOTAL 0.43 mg/dL (0.2-1.3); CALCIUM 7.7 mg/dL (8.5-10.1); CARBON DIOXIDE 32.4 mmol/L (21.0-32.0); CHLORIDE - SERUM 101 mmol/L (98-107); GLUCOSE 139 mg/dL (74-106); POTASSIUM - SERUM 4.6 mmol/L (3.5-5.1); PROTEIN - SERUM 5.8 g/dL (6.4-8.2); SODIUM 136 mmol/L (136-145)
[2019-04-24 05:57] LABS: CALC OSMOLALITY 277 mosm/kg (275-300); CREATININE - SERUM 0.8 mg/dL (0.6-1.3); UREA NITROGEN 23 mg/dL (7-18); eGFR NON AFRICAN AMERICAN > 90 mL/min (90-120)
--- NOTE | 2019-04-24 06:00 | NUR ---
RESTING, SEDATED ON VENTILATOR. WILL CONTINUE TO MONITOR.
[2019-04-24 06:02] LABS: BASOPHILS 0.2 % (0-2); EOSINOPHILS 2.8 % (0-7); HEMOGLOBIN 11.2 g/dL (13.5-17.5); IMMATURE GRANULOCYTES 0.3 % (0-5); LYMPHOCYTES 18.1 % (15-50); MCHC 31.1 g/dL (31.0-37.0); MCV 83.5 fL (80.0-100.0); MEAN PLATELET VOLUME 9.4 fL (7.4-10.4); MONOCYTES 11.7 % (2-11); NEUTROPHILS 66.9 % (40-80); PLATELET COUNT 466 10x3/uL (130-400); RBC 4.31 10x6/uL (4.20-6.10); RDW 20.3 % (11.5-14.5); WBC 8.6 10x3/uL (4.8-10.8)
--- NOTE | 2019-04-24 07:36 | NUR ---
DR. DEVRIES AT BEDSIDE, UPDATE GIVEN. NO NEW ORDERS RECEIVED.
--- NOTE | 2019-04-24 13:01 | NUR ---
Nutrition Follow-up: Noted TF held overnight 2/2 residuals; restarted this AM at 25 mL/hr. Reglan started per Dr. Davis and will hopefully be able to advance to goal rate. Diet: Pulmocare - goal rate 50 mL/hr H2O flushes - 50 mL q 4 hrs Wt: 168.6# (04/23); 170# (04/22); 166.4# (04/20) Last BM: 04/23 Labs noted: Glu 139, Ca 7.7, Alb 1.9 Meds noted: Diprivan, Levophed, Humulin, Miralax PRN, Reglan -Advance TF to goal rate as medically feasible. -Monitor wt. -RD following.
--- NOTE | 2019-04-24 19:15 | NUR ---
REC'D PT RESTING IN BED ON VENT VIA 7.5 ETT TAPED @ 25CM LIPLINE, SEE FLOWSHEET FOR VENT SETTINGS, OGT TAPED SECURELY TO ETT, PLACEMENT VERIFIED VIA SM AIR BOLUS AUSCULTATED OVER EPIGASTRIM, PULMOCARE INFUSING @ 25CC/HR WITH 50CC Q4HR FLUSH, PT OPENS EYES TO VERBAL STIMULI, SLOW TO FOLLOW COMMANDS, BILAT HOLE FILLER EQUAL AND STRONG, BILAT ARMS WITH BRUISES NOTED, RIGHT UPPER ARM PICC LINE DRSG CDI WITH NS @ 10CC/HR, DOBUTAMINE @ 5MCG/MIN OR 11.9CC/HR, FENTANYL @ 250MCG/MIN OR 5CC, AND LEVOPHED @ 9MCG/MIN OR 16.9CC/HR, ABD DISTENDED AND SEMIFIRM, PUNCTURE TO RIGHT ABD FROM PARACENTESIS, BUSCH PATENT DRAINING APOORVA COLORED URINE, PT RESTLESS IN BED MOVING LEGS AND ARMS FREQUENTLY, SR UP X 2, GUARD AT BS, BED IN LOW POSTION, BILAT SOFT WRIST RESTRAINTS ON.
--- NOTE | 2019-04-24 21:00 | NUR ---
PT REPOSITIONED ON TO BACK, ARMS ELEVATED ON PILLOWS, AND HEELS BRIDGED, VSS, WILL CONT TO MONITOR FOR CHANGES.
--- NOTE | 2019-04-24 21:35 | NUR ---
EVENING MEDS GIVEN ORDERED
--- NOTE | 2019-04-24 23:15 | NUR ---
REASSESSMENT COMPLETED, PT REACHING FOR TUBE ANYTIME WRIST RESTRAINT IS RELEASED, PT PUSHING AGAINST STAFF AT TIME WITH REPOSITIONING, ORAL CARE PROVIDED, PT REPOSITIONED ONTO RIGHT SIDE SUPPORTED WITH PILLOWS, CONTINUING TO WEAN LEVOPHED TOLERATED.
[2019-04-25] VITALS (85 sets, daily range): BP systolic 84–134; BP diastolic 59–86
--- NOTE | 2019-04-25 01:00 | NUR ---
PT REPOSITIONED UP IN BED, PT MOVED SELF DOWN IN BED ATTEMPTING TO REACH TUBE, FENTANYL INCREASED TO 350 MCG/HR, BP STABLE.
--- NOTE | 2019-04-25 03:18 | NUR ---
REASSESSMENT COMPLETED, PT SCOOTED TO MIDDLE OF BED, REPOSITIONED UP IN BED AND ONTO BACK FOR COMFORT, RESTRAINTS RESECURED, PT CONTINUES TO TRY AND REACH ETT, GUARD REMAINS IN ROOM, TF RESIDUAL 10, WILL CONTINUE AT 35CC/HR
--- NOTE | 2019-04-25 05:40 | NUR ---
COMPLETE CHG BATH AND LINEN CHANGE PROVIDED, PT REPOSITIONED UP IN BED AND ONTO LEFT SIDE SUPPORTED WITH PILLOWS, TOLERATED WELL.
[2019-04-25 06:22] LABS: BASOPHILS 0.3 % (0-2); EOSINOPHILS 0.6 % (0-7); HEMATOCRIT 34.6 % (42.0-54.0); HEMOGLOBIN 10.6 g/dL (13.5-17.5); IMMATURE GRANULOCYTES 0.3 % (0-5); LYMPHOCYTES 14.2 % (15-50); MCH 25.5 pg (26.0-34.0); MCHC 30.6 g/dL (31.0-37.0); MCV 83.2 fL (80.0-100.0); MEAN PLATELET VOLUME 9.3 fL (7.4-10.4); MONOCYTES 9.9 % (2-11); NEUTROPHILS 74.7 % (40-80); PLATELET COUNT 444 10x3/uL (130-400); RBC 4.16 10x6/uL (4.20-6.10); RDW 19.7 % (11.5-14.5)
[2019-04-25 06:57] LABS: ALBUMIN 1.9 g/dL (3.4-5.0); ALKALINE PHOSPHATASE 90 U/L (30-120); ALT (SGPT) 18 U/L (10-68); BILIRUBIN - TOTAL 0.53 mg/dL (0.2-1.3); CALC OSMOLALITY 276 mosm/kg (275-300); CALCIUM 7.8 mg/dL (8.5-10.1); CARBON DIOXIDE 30.7 mmol/L (21.0-32.0); CHLORIDE - SERUM 100 mmol/L (98-107); CREATININE - SERUM 0.8 mg/dL (0.6-1.3); GLUCOSE 143 mg/dL (74-106); MAGNESIUM - SERUM 2.1 mg/dL (1.8-2.4); PHOSPHOROUS 3.6 mg/dL (2.5-4.9); POTASSIUM - SERUM 4.8 mmol/L (3.5-5.1); PROTEIN - SERUM 5.8 g/dL (6.4-8.2); SODIUM 135 mmol/L (136-145); UREA NITROGEN 27 mg/dL (7-18); eGFR NON AFRICAN AMERICAN > 90 mL/min (90-120)
--- NOTE | 2019-04-25 19:00 | NUR ---
REPORT RECEIVED. RECEIVED PATIENT IN BED. SEDATED/INTUBATED. ETT INTACT/SECURE/PATENT CONNECTED TO [facility] VENT AT ORDERED SETTINGS. HOB UP 30 DEGREES. OGT INTACT/SECURE/PATENT WITH TUBE FEEDING INFUSING PER ORDER. MONITORS CONNECTED TO PATIENT WITH ALARMS SET. VSS. CONTINUES ON PRESSOR TITRATED PER ORDER. ASSESSMENT COMPLETED PER FLOW SHEET WITH NO ACUTE DISTRESS OBSERVED. GUARD AT BEDSIDE
--- NOTE | 2019-04-25 21:00 | NUR ---
RESTING WITH EYES CLOSED, ROUSES TO VOICE. ETT INTACT/SECURE/[facility] WITH SETTINGS ORDERED. VSS
--- NOTE | 2019-04-25 23:00 | NUR ---
REASSESSMENT COMPLETED PER FLOW SHEET WITH NO ACUTE DISTRESS OBSERVED. VSS. GUARD AT BEDSIDE
[2019-04-26] VITALS (92 sets, daily range): BP systolic 89–122; BP diastolic 57–86
--- NOTE | 2019-04-26 01:00 | NUR ---
RESTING WITH EYES CLOSED, ROUSES EASILY AND FOLLOWS SIMPLE COMMANDS. ETT INTACT/SECURE/PATENT CONNECTED TO [facility] VENT AT ORDERED SETTINGS. CONTINUES ON PRESSOR TITRATED TO EFFECT. VSS. GUARD AT BEDSIDE
--- NOTE | 2019-04-26 03:00 | NUR ---
REASSESSEMENT COMPLETED PER FLOW SHEET WITH NO ACUTE DISTRESS OBSERVED. VSS. GUARD AT BEDSIDE.
--- NOTE | 2019-04-26 05:00 | NUR ---
ROUSES EASILY AND FOLLOWS SIMPLE COMMANDS. VSS. NO DISTRESS OBSERVED. GUARD AT BEDSIDE
[2019-04-26 06:26] LABS: BASOPHILS 0.1 % (0-2); EOSINOPHILS 0.6 % (0-7); HEMATOCRIT 33.5 % (42.0-54.0); HEMOGLOBIN 10.5 g/dL (13.5-17.5); IMMATURE GRANULOCYTES 0.3 % (0-5); MCH 25.9 pg (26.0-34.0); MCHC 31.3 g/dL (31.0-37.0); MCV 82.7 fL (80.0-100.0); MEAN PLATELET VOLUME 9.2 fL (7.4-10.4); MONOCYTES 9.5 % (2-11); NEUTROPHILS 77.5 % (40-80); PLATELET COUNT 485 10x3/uL (130-400); RBC 4.05 10x6/uL (4.20-6.10); RDW 19.5 % (11.5-14.5); WBC 11.8 10x3/uL (4.8-10.8)
[2019-04-26 06:34] LABS: ALBUMIN 1.9 g/dL (3.4-5.0); ALKALINE PHOSPHATASE 92 U/L (30-120); ALT (SGPT) 19 U/L (10-68); BILIRUBIN - TOTAL 0.74 mg/dL (0.2-1.3); CALC OSMOLALITY 280 mosm/kg (275-300); CARBON DIOXIDE 31.7 mmol/L (21.0-32.0); CHLORIDE - SERUM 101 mmol/L (98-107); CREATININE - SERUM 0.9 mg/dL (0.6-1.3); GLUCOSE 147 mg/dL (74-106); MAGNESIUM - SERUM 2.3 mg/dL (1.8-2.4); PHOSPHOROUS 4.2 mg/dL (2.5-4.9); POTASSIUM - SERUM 4.6 mmol/L (3.5-5.1); PROTEIN - SERUM 5.9 g/dL (6.4-8.2); SODIUM 135 mmol/L (136-145); eGFR NON AFRICAN AMERICAN 89 mL/min (90-120)
[2019-04-26 06:40] LABS: UREA NITROGEN 35 mg/dL (7-18)
--- NOTE | 2019-04-26 14:40 | NUR ---
0730-RECIEVED PER FLOW SHEET-ATTEMPTED TO TURN TO L SIDE-PT STRONGLY RESISTED-USED BED ROTATION TO SHIFT POSITION 0800-PT REMAINS ON BACK 1030-ADDITIONAL NURSE BROUGHT TO ROOM TO TURN PT-NOTED SEVERE FOUL ODOUR FROM INTACT BUTTOCK DRG-REMOVED SAMED STAGE 2-3SKIN SHEAR PRESSURE-ABLE TO VISUALIZE UNDERLYING TISSUE -PURULENT ODIFUROUS DRAINAGE-REQUIRED CARE GIVERS TO USE FACIAL MASK -SKIN CARE DONE-DUODERM AND PADDED DRG PLACED-WOUND CARE CONSULT PLACED AND MESSAGE TO NUMBER SENT 5331-DR THURSTON AT [facility]-NO FURTHER ORDERS-PT POSITIONED SELF TO BACK-UTILIZED WEDGES TO ATTEMPT TO MAINTAIN TURNED -NOT SUCCESSFUL
--- NOTE | 2019-04-26 19:00 | NUR ---
REPORT RECEIVED, SHIFT ASSESSMENT COMPLETE PER FLOW SHEET, PT INTUBATED ON VENT PER RESPIRATORY ORDERS, BILAT WRIST RESTRAINTS REPOSITIONED, PT RESTLESS IN BED MOVING AND ATTEMPTING TO PULL AT TUBES; SEDATION TITRATED, RIGHT UPPER ARM PICC PATENT, DRSG C/D/I, ABDOMEN DISTENDED AND FIRM, BUSCH PATENT WITH APOORVA URINE, BUTTOX/COCCYX EXCORIATION NOTED, DRSG IN PLACE, REPOSITIONED FREQUENTLY, BLE SCD'S IN PLACE, BED ALARM ON, VSS, NSR ON CM, ADC GUARD AT BEDSIDE, WILL CONTINUE TO MONITOR
--- NOTE | 2019-04-26 21:00 | NUR ---
MEDS GIVEN PER MAY/ORDERS, NO ACUTE DISTRESS NOTED, VSS, DR. SHARP UPDATED ON PT RESTLESS WITH MOVEMENT IN BED, ORDERS RECEIVED FOR ATIVAN 1MG [id number] AND TO START LOW DOSE DIPROVAN IF PT CONTINUES TO BE RESTLESS, ALSO AIR OVERLAY BED ORDERED, NO FURTHER AT THIS TIME WILL CONTINUE TO MONITOR
--- NOTE | 2019-04-26 23:00 | NUR ---
REASSESSMENT COMPLETE PER FLOW SHEET, NO ACUTE CHANGES FROM PRIOR ASSESSMENT, REPOSITIONED FREQUENTLY AND Q2HR, PT MOVES ARMS AND LEGS WITH STIMULATION, RETRAINTS REPOSITIONED, VSS, NSR ON CM, HOB ELEVATED 30 DEGREES, ORAL CARE AND SUCTIONING COMPLETED, ADC GUARD AT BEDSIDE, WILL CONTINUE TO MONITOR
[2019-04-27] VITALS (88 sets, daily range): BP systolic 89–120; BP diastolic 54–82
--- NOTE | 2019-04-27 | NUR ---
AIR BED OVERLAY PLACED UNDER PT AND PROPERLY FUNCTIONING, COMPLETE CHG BED BATH WITH BUSCH CARE, COMPLETE LINEN CHANGE BED ZEROED POST AIR OVERLAY PLACEMENT, PT REPOSITIONED IN BED, ROM COMPLETED ON ALL EXTREMITIES, RESTRAINTS REPOSITIONED, PT TOLLERATED ACTIVITIES WELL, NSR ON CM, VSS, BED ALARM ON, ADC GAURD AT BEDSIDE, WILL CONTINUE TO MONITOR
--- NOTE | 2019-04-27 03:00 | NUR ---
REASSESSMENT COMPLETE, NO ACUTE CHANGES FROM PRIOR ASSESSMENT, ORAL CARE AND SUCTIONING COMPLETED, REPOSITIONED IN BED, HOB ELEVATED 30 DEGREES, RESTRAINTS REPOSITIONED, VSS, ADC GUARD AT BEDSIDE, WILL CONTINUE TO MONITOR
--- NOTE | 2019-04-27 05:45 | NUR ---
LABS DRAWN AND SENT TO LAB, REPOSITIONED PT FOR COMFORT, RESTRAINTS REPOSITIONED, VSS, ADC GUARD AT BEDSIDE
[2019-04-27 06:15] LABS: BASOPHILS 0.2 % (0-2); EOSINOPHILS 1.5 % (0-7); HEMATOCRIT 32.8 % (42.0-54.0); HEMOGLOBIN 10.2 g/dL (13.5-17.5); IMMATURE GRANULOCYTES 0.3 % (0-5); LYMPHOCYTES 14.7 % (15-50); MCH 25.8 pg (26.0-34.0); MCHC 31.1 g/dL (31.0-37.0); MEAN PLATELET VOLUME 9.1 fL (7.4-10.4); MONOCYTES 11.3 % (2-11); PLATELET COUNT 446 10x3/uL (130-400); RBC 3.95 10x6/uL (4.20-6.10); RDW 19.6 % (11.5-14.5); WBC 10.6 10x3/uL (4.8-10.8)
[2019-04-27 06:38] LABS: CALC OSMOLALITY 280 mosm/kg (275-300); CARBON DIOXIDE 30.8 mmol/L (21.0-32.0); CHLORIDE - SERUM 100 mmol/L (98-107); CREATININE - SERUM 0.9 mg/dL (0.6-1.3); GLUCOSE 142 mg/dL (74-106); POTASSIUM - SERUM 4.2 mmol/L (3.5-5.1); SODIUM 135 mmol/L (136-145); UREA NITROGEN 38 mg/dL (7-18); eGFR NON AFRICAN AMERICAN 89 mL/min (90-120)
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
--- NOTE | 2019-04-27 07:43 | NUR ---
report received. pt resting quietly on vent. opens eyes to voice. on air overlay mattress. scd's in use. pt tries to pull at lines, restraints secure. moran catheter. pt receiving tube feedings via og tube. abudlaziz picc line with ns, levophed, fentanyl and dobutamine infusing. bed low, side rails x3. alarm engaged.
--- NOTE | 2019-04-27 09:48 | NUR ---
PT TRANSPORTED TO 2311 ON PORTABLE VENT. TOLERATED WELL. PLACED ON MONITORING.
--- NOTE | 2019-04-27 11:00 | NUR ---
REASSESSMENT COMPLETE PER FLOW SHEET. VSS. PT RESTING COMFORTABLY DENIES NEEDS WILL CONTINUE TO MONITOR
--- NOTE | 2019-04-27 13:00 | NUR ---
AT BEDSIDE GIVEN UDPATE. DENIES NEEDS WILL CONTINUE TO MONITOR
--- NOTE | 2019-04-27 14:05 | NUR ---
Pt has a 10cm x 10cm unstageable pressure injury on bilateral buttocks on sacral/coccyx area. The wound is covered with necrotic oliveira tissue. No drainage or odor is noted at this time. Bilateral heels are red but blanchable. Recommendations: -air overlay mattress (in place at this time) -turn/reposition Q 2 hours (currently positioned on left side) -daily and as needed pericare with each incontinent episode -mepilex to bottom -calmoseptine cream for any redness/irritation of perineal area related to incontinence -float heels Wound care continues to monitor.
--- NOTE | 2019-04-27 19:31 | NUR ---
REPORT RECEIVED, SHIFT ASSESSMENT COMPLETED PER FLOW SHEET, SEE FOR DETAILS. DOG LICENSE OFFICER SUPERVISOR AT BEDSIDE. OGT PLACEMENT VERIFIED VIA AUSCULTATION. 2016 BLOOD NOTED IN OGT RESIDUAL, PVC'S NOTED ON MONITOR. STAT H&H OBTAINED AND POTASSIUM AND MAGNESIUM LEVEL. 2051 LAB RESULTS AVAILABLE, POTASSIUM 4.5 AND MAGNESIUM 2.1 NO TREATMENT PER PROTOCOL. PAGED DR. DEVRIES, WILL WAIT FOR CALL BACK. 2053 DR. DEVRIES RETURNED CALL, UPDATED HIM ON PATIENT'S STATUS, AND FINDINGS OF BLOOD IN OGT RESIDUAL, PER HIS ORDERS OBTAIN H&H Q8H, CONTINUE WITH TUBE FEEDINGS, NO OTHER ORDERS. 2117 SCHEDULED MEDS GIVEN, SEE EMAR FOR DETAILS. 2326 REASSESSMENT COMPLETED PER FLOW SHEET, SEE FOR DETAILS, NO ACUTE CHANGES NOTED. 99 NO ACUTE CHANGES, WILL CONTINUE TO MONITOR.
[2019-04-27 20:30] LABS: HEMATOCRIT 34.7 % (42.0-54.0); HEMOGLOBIN 10.8 g/dL (13.5-17.5)
[2019-04-27 20:39] LABS: MAGNESIUM - SERUM 2.1 mg/dL (1.8-2.4); POTASSIUM - SERUM 4.5 mmol/L (3.5-5.1)
[2019-04-28] VITALS (72 sets, daily range): BP systolic 64–111; BP diastolic 46–83
--- NOTE | 2019-04-28 03:11 | NUR ---
REASSESSMENT COMPLETED PER FLOW SHEET, SEE FOR DETAILS. NO ACUTE DISTRESS NOTED. WILL CONTINUE TO MONITOR. 0530 COMPLETE BED BATH GIVEN, COMPLETE BED LINEN CHANGE PROVIDED. NO ACUTE CHANGES NOTED. 0614 O2 SAT 86-90%, SUCTION PROVIDED, 02 SAT ONLY UP TO 88-90%, CALLED RT. 0615 RT AT BEDSIDE INCREASED FIO2 TO 60%, 02 SAT IMPROVED TO 97-99%.
[2019-04-28 06:10] LABS: BASOPHILS 0.2 % (0-2); EOSINOPHILS 0.4 % (0-7); HEMATOCRIT 34.9 % (42.0-54.0); HEMOGLOBIN 10.8 g/dL (13.5-17.5); IMMATURE GRANULOCYTES 0.3 % (0-5); LYMPHOCYTES 12.9 % (15-50); MCH 25.9 pg (26.0-34.0); MCHC 30.9 g/dL (31.0-37.0); MCV 83.7 fL (80.0-100.0); MEAN PLATELET VOLUME 9.6 fL (7.4-10.4); MONOCYTES 10.8 % (2-11); NEUTROPHILS 75.4 % (40-80); RBC 4.17 10x6/uL (4.20-6.10); RDW 19.6 % (11.5-14.5); WBC 11.2 10x3/uL (4.8-10.8)
[2019-04-28 06:26] LABS: PLATELET COUNT 544 10x3/uL (130-400)
[2019-04-28 06:30] LABS: ALBUMIN 1.9 g/dL (3.4-5.0); ALKALINE PHOSPHATASE 129 U/L (30-120); BILIRUBIN - TOTAL 0.67 mg/dL (0.2-1.3); CALC OSMOLALITY 283 mosm/kg (275-300); CALCIUM 8.3 mg/dL (8.5-10.1); CARBON DIOXIDE 30.4 mmol/L (21.0-32.0); CHLORIDE - SERUM 100 mmol/L (98-107); GLUCOSE 183 mg/dL (74-106); POTASSIUM - SERUM 4.5 mmol/L (3.5-5.1); PROTEIN - SERUM 6.1 g/dL (6.4-8.2); SODIUM 134 mmol/L (136-145); UREA NITROGEN 44 mg/dL (7-18); eGFR NON AFRICAN AMERICAN 79 mL/min (90-120)
[2019-04-28 06:31] LABS: ALT (SGPT) 25 U/L (10-68)
--- NOTE | 2019-04-28 07:40 | NUR ---
REPORT RECEIVED. SHIFT ASSESSMENT COMPLETE. PT REMAINS ON VENT. MILD SEDATION. PT HAS EYES OPEN. CALM AND COOPERATIVE. PT REPOSITIONED AND CHECKED FOR SOILING. PT IS CLEAN AND DRY. VSS. SCD'S IN USE. REMAINS ON 4MCG OF LEVOPHED. VENT SETTING CHANGED OVERNIGHT TO 60% FIO2.
--- NOTE | 2019-04-28 09:34 | NUR ---
DR HUGHES AT BEDSIDE. ASKED FOR SEDATION TO BE TURNED OFF AT THIS TIME. FENTANYL STOPPED.
--- NOTE | 2019-04-28 10:02 | NUR ---
TUBE FEEDING TURNED OFF FOR POSSIBLE PARACENTESIS LATER TODAY. DR SHARP WANTS TO SPEAK WITH FAMILY BEFORE DOING ANY ADDITIONAL INTERVENTIONS
[2019-04-28 14:29] LABS: HEMATOCRIT 35.7 % (42.0-54.0); HEMOGLOBIN 11.3 g/dL (13.5-17.5)
--- NOTE | 2019-04-28 15:07 | NUR ---
WITNESSED DR SHARP SPEAK WITH PTS BROTHER, MARIO ESPINOZA, REGARDING PT STATUS UPDATE AND CONFIRMINING CODE STATUS. PTS BROTHER MADE A DECISION FOR DNR STATUS WITH TERMINAL EXTUBATION STATING HIS BROTHER HAS SUFFERED FOR LONG ENOUGH. THIS WAS ALSO WITNESSSED BY A SECOND RN.
--- NOTE | 2019-04-28 15:08 | NUR ---
NURSING AT BEDSIDE TO CLEAN UP BOWEL MOVEMENT. PT VENT STARTED ALARM. PT TURNED FROM SIDE TO ON HIS BACK. CUFF FOUND TO HAVE LEAK AND UNABLE TO REINFLATE. IMMEDIATELY STARTED BAGGING PATIENT AND CALLED OUT FOR ANESTHESIA TO BE CALLED FOR EMERGENT REINUTBATION. DR SHARP STOOD UP FROM NURSING DESK AND SAID "DO NOT CALL ANESTHESIA, THE FAMILY JUST MADE THE PATIENT DNR" INSTRUCTED TO GIVE PATIENT MORPHINE AND ATIVAN IF NEEDED AND TO TERMINALLY EXTUBATE THE PATIENT. PT SATURATIONS REMAINED IN UPPER 90S. HR NORMAL SINUS IN 80S.
--- NOTE | 2019-04-28 15:43 | NUR ---
PT RESTING WITH EYES CLOSED AT THIS TIME. POST ATIVAN ADMINISTRATION. RESPIRATION PROVIDED BY VENT AT SET RATE OF 14. HR REMAINS SINUS LOW 80S.
--- NOTE | 2019-04-28 15:50 | NUR ---
PT EXTUBATED AND PLACED ON 2L NC.
--- NOTE | 2019-04-28 18:14 | NUR ---
PT HAS PASSED. DR SHARP NOTIFIED. CERTIFICATE SIGNED BY DR SHARP. CORONERS OFFICE NOTIFIED OF AND VETO HARLEY RETURNED THE CALL AND WILL BE UP SHORTLY. CANDACE REMAINS AT BEDSIDE AND HAS NOTIFIED HIS DROP COUNT ASSOCIATE
--- NOTE | 2019-04-28 19:21 | NUR ---
VETO HARLEY WITH PROGRAM PROJECT MANAGER OFFICE HAS BEEN IN. PHOTOGRAPHED BODY. REQUESTED PAPERWORK PROVIDED. GUARD ON DUTY ESCORTED BODY AND PROGRAM PROJECT MANAGER TO OMAHAMaria Esther
--- NOTE | 2019-04-28 19:35 | NUR ---
CANDACE REDMOND GIVEN PATIENT 2 WOOLEN BLANKETS AND A STRETCH BAND WATCH.
--- NOTE | 2019-04-30 09:05 | MORECARE ---
CASE MANAGEMENT DISCHARGE SUMMARY PATIENT: MIRNA ESPINOZA UNIT: [id number] ADM DATE: 04/10/19 AGE: 68 : 49 SEX: M ROOM/BED: D.2311 AUTHOR: BRI LAMAS PHYSICIAN: REFERRING PHYSICIAN: MINNIE SCHULTZ MD DATE OF SERVICE: 04/30/19 Discharge Plan Patient Name: MIRNA ESPINOZA Facility: [facility]:[place] : 1950 Planned Disposition: Anticipated Discharge Date: Discharge Date: 04/28/2019 Expected LOS: Initial Reviewer: [email or web address] Initial Review Date: 04/10/2019 Generated: 04/30/19 10:05 am DCP- Discharge Planning Updated by [email or web address]: Ca Felix on 04/17/19 2:[address] Patient Name: MIRNA ESPINOZA Admission Status: ER Accout number: [id number] Admission Date: 04-10-2019 : 1950 Admission Diagnosis: Attending: DOROTHEA Current LOS: 7 Anticipated DC Date: Planned Disposition: Primary Insurance: MEDICAID SNF PENDING Discharge Planning Comments: REVIEWED CHART, PATIENT IS FROM [facility] AND PLAN WILL BE TO RETURN TO [facility] WHEN STABLE. CM TO FOLLOW AND ASSIST NEEDED. Director Database: Ca Felix DCPIA - Discharge Planning Initial Assessment Updated by [email or web address]: Ca Felix on 04/17/19 3:40 pm * [facility]CP [facility] * [facility]acy [facility] * Preadmission Environment Other * Facility Name [facility] * Additional services required to return to the preadmission environment? No * Can the patient safely return to the preadmission environment? Yes * Has this patient been hospitalized within the prior 30 days at any hospital? No Last DP export: 04/17/19 2:45 p Patient Name: MIRNA ESPINOZA Page [id number] at 0905 All edits/amendments must be made on the electronic document DICTATION DATE: 04/30/19904 REHANGER: XENIA 04/30/19904 RPT#: [id number] DC DATE:04/28/19 STATUS: DIS IN [place] [id number] [place] [address] END OF REPORT
== END 2019-04-28 19:47 | DRG 207 ==
LOC: D.ER 13:35 → D.CVICU 16:00 → D.ICU 16:00 → D.M2 16:00 → D.CVICU 04-18 22:25 → D.ICU 04-27 09:46
PROVIDERS: Family Medicine; General Practice; Internal Medicine Gastroenterology; Internal Medicine Nephrology; Internal Medicine Pulmonary Disease; Specialist; ADMIT Family Medicine; ATTEND Family Medicine
PROC: 0W993ZZ Drainage of Right Pleural Cavity, Percutaneous Approach (ICD-10-PCS; principal; 2019-04-12 08:30)
PROC: 0W9G3ZZ Drainage of Peritoneal Cavity, Percutaneous Approach (ICD-10-PCS; 2019-04-16)
PROC: 5A1955Z Respiratory Ventilation, Greater than 96 Consecutive Hours (ICD-10-PCS; 2019-04-18)
PROC: 0BH17EZ Insertion of Endotracheal Airway into Trachea, Via Natural or Artificial Opening (ICD-10-PCS; 2019-04-18)
PROC: 0B9F8ZX Drainage of Right Lower Lung Lobe, Via Natural or Artificial Opening Endoscopic, Diagnostic (ICD-10-PCS; 2019-04-19)
PROC: 0W9G3ZZ Drainage of Peritoneal Cavity, Percutaneous Approach (ICD-10-PCS; 2019-04-19)
DX: J18.9 Pneumonia, unspecified organism (principal); I50.23 Acute on chronic systolic (congestive) heart failure; J96.21 Acute and chronic respiratory failure with hypoxia; J96.22 Acute and chronic respiratory failure with hypercapnia; G93.41 Metabolic encephalopathy; E43 Unspecified severe protein-calorie malnutrition; J44.0 Chronic obstructive pulmonary disease with (acute) lower respiratory infection; R18.8 Other ascites; J98.11 Atelectasis; J44.1 Chronic obstructive pulmonary disease with (acute) exacerbation; N17.9 Acute kidney failure, unspecified; J90 Pleural effusion, not elsewhere classified; G93.1 Anoxic brain damage, not elsewhere classified; N39.0 Urinary tract infection, site not specified; J94.8 Other specified pleural conditions; I46.9 Cardiac arrest, cause unspecified; E11.65 Type 2 diabetes mellitus with hyperglycemia; K21.9 Gastro-esophageal reflux disease without esophagitis; D50.9 Iron deficiency anemia, unspecified; F32.5 Major depressive disorder, single episode, in full remission; Z87.891 Personal history of nicotine dependence